=== PATIENT | male | born 1935 ===

== ENCOUNTER 2018-03-25 22:01 | Inpatient (IN) | payer MEDICARE ==
[2018-03-25 23:15] VITALS: BMI 28.1
--- NOTE | 2018-03-26 06:17 | CP.PCM.CON ---
History of Present Illness - History of Present Illness History of Present Illness: Consult: Dr. Lawrence 83M presents transfer to hospital from [facility] from AAA repair w/ Dr. Lawrence. Of not patient originally present to to hospital for dizziness and abdominal pain. Abdominal pain has been going on for 2 months. He states the pain is in the lower abdomen bilateral which has currently resolved. He denies nausea, vomiting , fevers, chills, he has been tolerating diet and having normal bowel movements. He has has a history of AAA which was 3.8-4.1 in 2011. AAA now measuring 4.7*4.8cm. PMH: DM, HTN, COPD, PVD, AAA PSH: poss IHR, right LE vascular bypass, IVC filter Social: cigar smoker, denies alcohol use, denies illicit drugs Allergies: NKDA Review of Systems - Review of Systems All systems: reviewed and no additional remarkable complaints except Review of Systems: unless stated in HPI Past Patient History - Past Social History Smoking Status: Heavy Smoker > 10 Cigarettes Daily - CARDIAC Hx Cardiac Disorders: Yes Hx Hypertension: Yes - PULMONARY Hx Respiratory Disorders: Yes - NEUROLOGICAL Hx Neurological Disorder: No - HEENT Hx HEENT Problems: No - RENAL Hx Chronic Kidney Disease: No - ENDOCRINE/METABOLIC Hx Endocrine Disorders: Yes Hx Diabetes Mellitus Type 2: Yes - HEMATOLOGICAL/ONCOLOGICAL Hx Blood Disorders: No - INTEGUMENTARY Hx Dermatological Problems: No - MUSCULOSKELETAL/RHEUMATOLOGICAL Hx Musculoskeletal Disorders: Yes Hx Arthritis: Yes Hx Back Pain: Yes Hx Falls: No - GASTROINTESTINAL Hx Gastrointestinal Disorders: No - GENITOURINARY/GYNECOLOGICAL Hx Genitourinary Disorders: No - PSYCHIATRIC Hx Psychophysiologic Disorder: Yes Hx Anxiety: Yes Hx Substance Use: No - SURGICAL HISTORY Hx Surgeries: Yes Other/Comment: RLE vascular surgery Fame-Pop bypass. IVC filter. Skin Nose Ca - ANESTHESIA Hx Anesthesia: Yes Hx Anesthesia Reactions: No Meds Allergies/Adverse Reactions: Allergies Allergy/AdvReac Type Severity Reaction Status Date / Time No Known Allergies Allergy Verified 03/19/18 10:19 Physical Exam - Constitutional Appears: Non-toxic, No Acute Distress - Head Exam Head Exam: ATRAUMATIC, NORMOCEPHALIC - Eye Exam Eye Exam: EOMI, Normal appearance - ENT Exam ENT Exam: Mucous Membranes Moist - Respiratory Exam Respiratory Exam: NORMAL BREATHING PATTERN. absent: Respiratory Distress - Cardiovascular Exam Cardiovascular Exam: REGULAR RHYTHM. absent: Tachycardia - GI/Abdominal Exam GI & Abdominal Exam: Soft. absent: Distended, Tenderness - Extremities Exam Extremities exam: Negative for: calf tenderness - Neurological Exam Neurological exam: Alert - Psychiatric Exam Psychiatric exam: Normal Affect, Normal Mood - Skin Skin Exam: Dry, Normal Color, Warm Results - Vital Signs Recent Vital Signs: Last Vital Signs Temp 97.5 F L 03/25/18 23:50 Pulse 69 03/25/18 23:50 Resp 20 03/25/18 23:50 BP 90/52 L 03/25/18 23:50 Pulse Ox 98 03/25/18 23:50 Assessment & Plan - Assessment and Plan (Free Text) Assessment: 83 y/o male w/ AAA and abdominal pain, transferred to [facility] for possible EVAR Plan: -f/u with Dr. aLwrence regarding date and time -medical management per primary team -blood pressure control -further recs per Dr. Lawrence [facility] PGY3
[2018-03-26] MEDS: Sodium Chloride 0.9% 1,000 ML IV SCH ×2 (06:54→19:11)
[2018-03-26] MEDS ORDERED: Dextrose 50% SYRINGE Inj (50 ml) IVP PRN (07:55)
[2018-03-26] MEDS ORDERED: Glucagon Recombinant 1 mg Inj IM PRN (07:55)
[2018-03-26 07:56] LABS: BASO # 0.1 K/uL (0.0-0.2); BASO % 0.9 % (0.0-2.0); EOS # 0.3 K/uL (0.0-0.7); EOS % 5.2 % (0.0-4.0); HEMOGLOBIN 14.5 g/dL (12.0-18.0); LYMPH # 2.1 K/uL (1.0-4.3); LYMPH % 35.7 % (20.0-40.0); MEAN CELL VOLUME 96.1 fL (80.0-94.0); MEAN CORPUSCULAR HEMOGLOBIN 33.3 pg (27.0-31.0); MEAN CORPUSCULAR HGB CONC 34.7 g/dL (33.0-37.0); MEAN PLATELET VOLUME 8.3 fL (7.2-11.7); MONO # 0.5 K/uL (0.0-0.8); MONO % 8.8 % (0.0-10.0); NEUT # 2.9 K/uL (1.8-7.0); NEUT % 49.4 % (50.0-75.0); RBC 4.34 Mil/uL (4.40-5.90); RED CELL DISTRIBUTION WIDTH 13.4 % (11.5-14.5); WHITE BLOOD COUNT 5.8 K/uL (4.8-10.8)
--- NOTE | 2018-03-26 07:59 | CP.PCM.HP ---
<Crissy Alvarado - Last Filed: 03/26/18 16:15> History of Present Illness - History of Present Illness History of Present Illness: 83 year old [place] male with past medical history of HTN, DM, COPD, PVA, DVT, and AAA was transferred from [facility] for AAA repair. Patient's abdominal pain started about 2 months ago. The pain has been getting worse progressively which prompt him to go to the ED at [facility]. Patient describes the pain as sharp in quality and non-radiating. This pain only happens at night when he is lying down. He does not take any pain medication for this pain. Patient was found to have AAA of 3.8-4.1cm in 2012. Patient denies having fever, chills, dizziness, headache, shortness of breath, back pain, extremity swelling, nausea, vomiting, diarrhea, or urinary symptoms. : Lizzie [phone] PMD: Dr. Powell PMH: DM, HTN, COPD, PVD, AAA PSH: right LE vascular bypass, IVC filter Allergies: NKDA Social: cigar smoker, denies alcohol use, denies illicit drugs Home meds: HCTZ, Pentoxifylline, meclizine, glimepiride, cilostazol [facility] [phone] Present on Admission - Present on Admission Any Indicators Present on Admission: Yes History of DVT/PE: Yes Review of Systems - Review of Systems All systems: reviewed and no additional remarkable complaints except Past Patient History - Past Social History Smoking Status: Current Some Days Smoker - CARDIAC Hx Cardiac Disorders: Yes Hx Hypertension: Yes - PULMONARY Hx Respiratory Disorders: Yes - NEUROLOGICAL Hx Neurological Disorder: No - HEENT Hx HEENT Problems: No - RENAL Hx Chronic Kidney Disease: No - ENDOCRINE/METABOLIC Hx Endocrine Disorders: Yes Hx Diabetes Mellitus Type 2: Yes - HEMATOLOGICAL/ONCOLOGICAL Hx Blood Disorders: No - INTEGUMENTARY Hx Dermatological Problems: No - MUSCULOSKELETAL/RHEUMATOLOGICAL Hx Musculoskeletal Disorders: Yes Hx Arthritis: Yes Hx Back Pain: Yes Hx Falls: No - GASTROINTESTINAL Hx Gastrointestinal Disorders: No - GENITOURINARY/GYNECOLOGICAL Hx Genitourinary Disorders: No - PSYCHIATRIC Hx Psychophysiologic Disorder: Yes Hx Anxiety: Yes Hx Substance Use: No - SURGICAL HISTORY Hx Surgeries: Yes Other/Comment: RLE vascular surgery Fame-Pop bypass. IVC filter. Skin Nose Ca - ANESTHESIA Hx Anesthesia: Yes Hx Anesthesia Reactions: No Meds Allergies/Adverse Reactions: Allergies Allergy/AdvReac Type Severity Reaction Status Date / Time No Known Allergies Allergy Verified 03/19/18 10:19 Physical Exam - Additional Findings Additional findings: - Constitutional Appears: No Acute Distress - Head Exam Head Exam: NORMAL INSPECTION - Eye Exam Eye Exam: PERRL - ENT Exam ENT Exam: Normal Exam - Neck Exam Neck exam: Positive for: Normal Inspection - Respiratory Exam Respiratory Exam: Clear to Auscultation bilaterally, no wheezes, no crackers - Cardiovascular Exam Cardiovascular Exam: REGULAR RHYTHM - GI/Abdominal Exam GI & Abdominal Exam: Normal Bowel Sounds, No tenderness, No bruits - Extremities Exam Extremities exam: Positive for: normal inspection - Back Exam Back exam: NORMAL INSPECTION - Neurological Exam Neurological exam: Alert, Oriented x3 Additional comments: No focal motor/sensory deficit. - Psychiatric Exam Psychiatric exam: Anxious - Skin Skin Exam: Warm Results - Vital Signs Recent Vital Signs: Last Vital Signs Temp 97.6 F 03/26/18 07:25 Pulse 85 03/26/18 07:25 Resp 18 03/26/18 07:25 BP 110/66 03/26/18 07:25 Pulse Ox 97 03/26/18 07:25 - Labs Result Diagrams: 03/26/18 07:53 03/26/18 07:53 Labs: Laboratory Results - last 24 hr 03/26/18 06:31 POC Glucose (mg/dL) 157 H Assessment & Plan - Assessment and Plan (Free Text) Assessment: Abdominal aortic aneurym -Abdominal U/S shows infrarenal abdominal aortic aneurysm up to 4.4cm. Intramural thrombus noted along right aspect of aorta -CT abd shows AAA measures now 4.7 x 4.8cm compare to prior 3.8x 4.1cm. Considerable thrombus identified -Patient transferred from [facility] plan for with surgical team -Surgery consulted, Dr. Lawrence -Cardiology cleared for surgery -On schedule for Thursday OR HTN -Optimize for surgery -Continue HCTZ 25mg po Hx of DVT -Follow up venous doppler PVD -Pentoxil 400mg po DM -A1C 6.1 on 03/20/18 -FS Q6h -ISS -Hypoglycemic protocol -Hold DM meds Prophylactic measures -Protonix -Lovenox -SCD C/I due to PVD <Luna Glez V - Last Filed: 03/28/18 23:34> Results - Vital Signs Recent Vital Signs: Last Vital Signs Temp 98 F 03/27/18 15:53 Pulse 66 03/27/18 15:53 Resp 20 03/27/18 15:53 BP 150/67 03/27/18 15:53 Pulse Ox 96 03/27/18 15:53 - Labs Result Diagrams: 03/28/18 07:27 03/28/18 07:27 Labs: Laboratory Results - last 24 hr 03/26/18 03/26/18 03/27/18 17:06 21:22 06:20 WBC RBC Hgb Hct MCV MCH MCHC RDW Plt Count MPV Neut % (Auto) Lymph % (Auto) [place] % (Auto) Eos % (Auto) Baso % (Auto) Neut # (Auto) Lymph # (Auto) [place] # (Auto) Eos # (Auto) Baso # (Auto) Sodium Potassium Chloride Carbon Dioxide Anion Gap BUN Creatinine Est GFR ( Amer) Est GFR (Non-Af Amer) POC Glucose (mg/dL) 269 H 218 H 136 H Random Glucose Calcium Total Bilirubin AST ALT Alkaline Phosphatase Total Protein Albumin Globulin Albumin/Globulin Ratio 03/27/18 03/27/18 03/27/18 07:43 07:43 11:48 WBC 6.1 RBC 4.09 L Hgb 13.8 Hct 39.2 MCV 95.8 H MCH 33.8 H MCHC 35.3 RDW 13.5 Plt Count 152 MPV 8.4 Neut % (Auto) 50.9 Lymph % (Auto) 33.3 [place] % (Auto) 9.2 Eos % (Auto) 6.1 H Baso % (Auto) 0.5 Neut # (Auto) 3.1 Lymph # (Auto) 2.0 [place] # (Auto) 0.6 Eos # (Auto) 0.4 Baso # (Auto) 0.0 Sodium 142 Potassium 4.6 Chloride 104 Carbon Dioxide 29 Anion Gap 14 BUN 35 H Creatinine 1.3 Est GFR ( Amer) > 60 Est GFR (Non-Af Amer) 53 POC Glucose (mg/dL) 137 H Random Glucose 136 H Calcium 8.8 Total Bilirubin 0.4 AST 17 ALT 13 L Alkaline Phosphatase 74 Total Protein 6.2 L Albumin 3.4 L Globulin 2.8 Albumin/Globulin Ratio 1.2 Attending/Attestation - Attestation I have personally seen and examined this patient.: Yes I have fully participated in the care of the patient.: Yes I have reviewed all pertinent clinical information: Yes Notes (Text): This is late computer entry for 03/26/18. Hospitalist Service Covering 's service until 03/29 Patient with known history of hypertension, History of DVT, Peripheral vascular disease, diabetes, AAA was transferred from [place] for EVAR with Vascular surgery at [facility]. Patient reported 2 week history of abdominal pain wherein known aneurysm grew in size. Resident has spoken with surgery team and surgeon's office, patient is scheduled for surgery for March 29. In the [place] EMR, patient was seen by cardiology and cleared for procedure. Patient seen at bedside with the resident. Discussed admitting orders with the resident. Vascular and cardiology consulted on the patient. Please refer to [place] hospitalization in EMR for initial workup for further details. Assessment/Plan 1) Abdominal aortic aneurysm * Vascular surgery (Dr. Lawrence) on case-->help appreciated * Cardiology (Dr. Zeng) on case-->help appreciated * Underwent cardiac workup and clearance while at [place] * s/p stress test showing no evidence of ischemia * As per ACC/AHA guidelines he can proceed with planned surgery of AAA with low risk for perioperative cardiac event * keep pt on bb * Abdominal U/S shows infrarenal abdominal aortic aneurysm up to 4.4cm. Intramural thrombus noted along right aspect of aorta * CT abd shows AAA measures now 4.7 x 4.8cm compare to prior 3.8x 4.1cm. Considerable thrombus identified * Patient transferred from [facility] plan for EVAAR, planned for March 29 * Will keep antihypertensives on board 2) Hypertension * Continue HCTZ 25mg po daily * Recommended for beta juan jose by cardiology * Will monitor blood pressure 3) Hx of DVT * Follow up venous doppler lower extremities--unclear how recent clot was * Contraindications to SCDS 4) History of PVD * Pentoxil 400mg PO daily 5) History of Diabetes * A1C 6.1 on 03/20/18 * Accuchecks Q6 * ISS * Hypoglycemic protoco * Hold DM meds on admission until surgery date was clarified; patient takes Januvia and Amaryl 6) Prophylactic measures * Protonix 40mg PO daily * Lovenox 40mg subqdaily * SCD C/I due to PVD 03/28/18 23:30
[2018-03-26 08:04] LABS: PROTHROMBIN TIME 11.4 SECONDS (9.7-12.2)
[2018-03-26 08:11] LABS: ALB/GLOB RATIO 1.3 (1.0-2.1)
[2018-03-26] MEDS: (Novolin R) Insulin Human Regular 100 units/ml vial SC SCH ×4 (12:30→22:00)
[2018-03-27] MEDS: (Novolin R) Insulin Human Regular 100 units/ml vial SC SCH ×3 (07:29→21:50)
[2018-03-27 08:00] LABS: BASO % 0.5 % (0.0-2.0); EOS # 0.4 K/uL (0.0-0.7); EOS % 6.1 % (0.0-4.0); HEMOGLOBIN 13.8 g/dL (12.0-18.0); LYMPH % 33.3 % (20.0-40.0); MEAN CELL VOLUME 95.8 fL (80.0-94.0); MEAN CORPUSCULAR HEMOGLOBIN 33.8 pg (27.0-31.0); MEAN CORPUSCULAR HGB CONC 35.3 g/dL (33.0-37.0); MEAN PLATELET VOLUME 8.4 fL (7.2-11.7); MONO # 0.6 K/uL (0.0-0.8); MONO % 9.2 % (0.0-10.0); NEUT # 3.1 K/uL (1.8-7.0); NEUT % 50.9 % (50.0-75.0); RBC 4.09 Mil/uL (4.40-5.90); RED CELL DISTRIBUTION WIDTH 13.5 % (11.5-14.5); WHITE BLOOD COUNT 6.1 K/uL (4.8-10.8)
[2018-03-27 08:24] LABS: ALB/GLOB RATIO 1.2 (1.0-2.1); ALBUMIN 3.4 g/dL (3.5-5.0); ALT/SGPT 13 U/L (21-72); AST/SGOT 17 U/L (17-59); BLOOD UREA NITROGEN 35 mg/dL (9-20); CALCIUM 8.8 mg/dl (8.6-10.4); GFR AFRICAN-AMERICAN > 60; GFR NON-AFRICAN AMERICAN 53
--- NOTE | 2018-03-27 08:48 | CP.PCM.PN ---
Subjective - Date & Time of Evaluation Date of Evaluation: 03/27/18 Time of Evaluation: 08:43 - Subjective Subjective: Vascular Surgery Progress Note For Dr. Lawrence This 83 M was seen this AM at bedside. He said " he feels the same" and yelled. He was uncooperative this AM. Expressed concerns that he is no receiving his diabetes medications. I explained that he is on different diabetes medications in the hospital than he would be at home and the the medical team is managing it. Objective - Vital Signs/Intake and Output Vital Signs (last 24 hours): Temp Pulse Resp BP Pulse Ox 97.5 F L 65 20 157/81 H 97 03/27/18 07:05 03/27/18 07:05 03/27/18 07:05 03/27/18 07:05 03/27/18 07:05 Intake and Output: 03/27/18 03/27/18 06:59 18:59 Intake Total 0 Balance 0 - Medications Medications: Current Medications Dextrose (Dextrose 50% Inj) 0 ml IVP .STAT PRN; Protocol PRN Reason: Hypoglycemia Protocol Dextrose (Glutose 15) 0 gm PO .ONCE PRN; Protocol PRN Reason: Hypoglycemia Protocol Enoxaparin Sodium (Lovenox) 40 mg SC DAILY [facility] Glucagon (Glucagen Diagnostic Kit) 0 mg IM .STAT PRN; Protocol PRN Reason: Hypoglycemia Protocol Hydrochlorothiazide (Hydrodiuril) 25 mg PO DAILY [facility] Last Admin: 03/26/18 10:00 Dose: 25 mg Sodium Chloride (Sodium Chloride 0.9%) 1,000 mls @ 75 mls/hr IV .[id number] [facility] Last Admin: 03/26/18 19:11 Dose: Not Given Dextrose (Dextrose 5% In Water 1000 Ml) 1,000 mls @ 0 mls/hr IV .Q0M PRN; Protocol; Per Protocol PRN Reason: Hypoglycemia Protocol Insulin Human Regular (Novolin R) 0 unit SC ACHS [facility] PRN Reason: Protocol Last Admin: 03/27/18 07:29 Dose: Not Given Meclizine HCl (Antivert) 25 mg PO DAILY [facility] Last Admin: 03/26/18 10:00 Dose: 25 mg Pantoprazole Sodium (Protonix Inj) 40 mg IVP DAILY [facility] Last Admin: 03/26/18 12:31 Dose: 40 mg Pentoxifylline (Pentoxil) 400 mg PO DAILY [facility] Last Admin: 03/26/18 10:00 Dose: 400 mg Sitagliptin Phosphate (Januvia) 50 mg PO DAILY [facility] - Labs Labs: 03/27/18 07:43 03/27/18 07:43 PT 11.4 SECONDS (9.7-12.2) 03/26/18 07:53 INR 1.0 03/26/18 07:53 - Constitutional Appears: Non-toxic, No Acute Distress - Head Exam Head Exam: ATRAUMATIC, NORMOCEPHALIC - Eye Exam Eye Exam: EOMI - ENT Exam ENT Exam: Mucous Membranes Moist - Respiratory Exam Respiratory Exam: NORMAL BREATHING PATTERN - Cardiovascular Exam Cardiovascular Exam: REGULAR RHYTHM - GI/Abdominal Exam GI & Abdominal Exam: Soft. absent: Tenderness - Neurological Exam Neurological Exam: Alert, Awake - Psychiatric Exam Psychiatric exam: Agitated Assessment and Plan - Assessment and Plan (Free Text) Assessment: 83 y/o male w/ AAA and abdominal pain, transferred to [facility] for possible EVAR Plan: -Plan for OR Thursday - NPO thursday night -medical management per primary team -blood pressure control -D/W Dr. Howard Warren PGY2
[2018-03-27] MEDS: Sodium Chloride 0.9% 1,000 ML IV SCH ×2 (10:15→21:59)
[2018-03-27] MEDS: Enoxaparin 40 mg Syringe SC SCH (10:17)
--- NOTE | 2018-03-27 13:06 | CP.PCM.CON ---
History of Present Illness - History of Present Illness History of Present Illness: Consultation for preop evaluation for AAA repair via EVAR planned for thursday HPI: 83 year old patient of who was seen and evaluated by me in [place] and underwent nuclear stress test last week for preoperative evaluatoin for EVAR. plan for sx on thursday Review of Systems - Review of Systems Systems not reviewed;Unavailable: Acuity of Condition - Constitutional Constitutional: As Per HPI - EENT Eyes: As Per HPI Ears: As Per HPI Nose/Mouth/Throat: As Per HPI - Cardiovascular Cardiovascular: As Per HPI - Respiratory Respiratory: As Per HPI - Gastrointestinal Gastrointestinal: As Per HPI - Genitourinary Genitourinary: As Per HPI - Reproductive: Male Reproductive:Male: As Per HPI - Musculoskeletal Musculoskeletal: As Per HPI - Integumentary Integumentary: As Per HPI - Neurological Neurological: As Per HPI - Psychiatric Psychiatric: As Per HPI - Endocrine Endocrine: As Per HPI - Hematologic/Lymphatic Hematologic: As Per HPI Past Patient History - Past Social History Smoking Status: Current Some Days Smoker - CARDIAC Hx Cardiac Disorders: Yes Hx Hypertension: Yes - PULMONARY Hx Respiratory Disorders: Yes - NEUROLOGICAL Hx Neurological Disorder: No - HEENT Hx HEENT Problems: No - RENAL Hx Chronic Kidney Disease: No - ENDOCRINE/METABOLIC Hx Endocrine Disorders: Yes Hx Diabetes Mellitus Type 2: Yes - HEMATOLOGICAL/ONCOLOGICAL Hx Blood Disorders: No - INTEGUMENTARY Hx Dermatological Problems: No - MUSCULOSKELETAL/RHEUMATOLOGICAL Hx Musculoskeletal Disorders: Yes Hx Arthritis: Yes Hx Back Pain: Yes Hx Falls: No - GASTROINTESTINAL Hx Gastrointestinal Disorders: No - GENITOURINARY/GYNECOLOGICAL Hx Genitourinary Disorders: No - PSYCHIATRIC Hx Psychophysiologic Disorder: Yes Hx Anxiety: Yes Hx Substance Use: No - SURGICAL HISTORY Hx Surgeries: Yes Other/Comment: RLE vascular surgery Fame-Pop bypass. IVC filter. Skin Nose Ca - ANESTHESIA Hx Anesthesia: Yes Hx Anesthesia Reactions: No Meds Allergies/Adverse Reactions: Allergies Allergy/AdvReac Type Severity Reaction Status Date / Time No Known Allergies Allergy Verified 03/19/18 10:19 - Medications Medications: Current Medications Dextrose (Dextrose 50% Inj) 0 ml IVP .STAT PRN; Protocol PRN Reason: Hypoglycemia Protocol Dextrose (Glutose 15) 0 gm PO .ONCE PRN; Protocol PRN Reason: Hypoglycemia Protocol Enoxaparin Sodium (Lovenox) 40 mg SC DAILY [facility] Last Admin: 03/27/18 10:17 Dose: Not Given Glucagon (Glucagen Diagnostic Kit) 0 mg IM .STAT PRN; Protocol PRN Reason: Hypoglycemia Protocol Hydrochlorothiazide (Hydrodiuril) 25 mg PO DAILY [facility] Last Admin: 03/27/18 11:49 Dose: 25 mg Sodium Chloride (Sodium Chloride 0.9%) 1,000 mls @ 75 mls/hr IV .[id number] [facility] Last Admin: 03/27/18 10:15 Dose: Not Given Dextrose (Dextrose 5% In Water 1000 Ml) 1,000 mls @ 0 mls/hr IV .Q0M PRN; Protocol; Per Protocol PRN Reason: Hypoglycemia Protocol Insulin Human Regular (Novolin R) 0 unit SC ACHS [facility] PRN Reason: Protocol Last Admin: 03/27/18 07:29 Dose: Not Given Meclizine HCl (Antivert) 25 mg PO DAILY [facility] Last Admin: 03/27/18 10:17 Dose: Not Given Pantoprazole Sodium (Protonix Inj) 40 mg IVP DAILY [facility] Last Admin: 03/27/18 10:17 Dose: Not Given Pentoxifylline (Pentoxil) 400 mg PO DAILY [facility] Last Admin: 03/27/18 10:17 Dose: Not Given Sitagliptin Phosphate (Januvia) 50 mg PO DAILY [facility] Physical Exam - Constitutional Appears: Well - Head Exam Head Exam: ATRAUMATIC, NORMAL INSPECTION, NORMOCEPHALIC - Eye Exam Eye Exam: EOMI, Normal appearance, PERRL Pupil Exam: NORMAL ACCOMODATION, PERRL - ENT Exam ENT Exam: Mucous Membranes Moist, Normal Exam - Neck Exam Neck exam: Positive for: Normal Inspection - Respiratory Exam Respiratory Exam: Clear to Auscultation Bilateral, NORMAL BREATHING PATTERN - Cardiovascular Exam Cardiovascular Exam: REGULAR RHYTHM, RRR, +S1, +S2, Systolic Murmur - GI/Abdominal Exam GI & Abdominal Exam: Normal Bowel Sounds, Soft. absent: Tenderness - Extremities Exam Extremities exam: Positive for: normal inspection - Back Exam Back exam: NORMAL INSPECTION - Neurological Exam Neurological exam: Alert, CN II-XII Intact, Normal Gait, Oriented x3, Reflexes Normal - Psychiatric Exam Psychiatric exam: Normal Affect, Normal Mood - Skin Skin Exam: Dry, Intact, Normal Color, Warm Results - Vital Signs Recent Vital Signs: Last Vital Signs Temp 97.5 F L 03/27/18 07:05 Pulse 65 03/27/18 07:05 Resp 20 03/27/18 07:05 BP 157/81 H 03/27/18 07:05 Pulse Ox 97 03/27/18 07:05 - Labs Result Diagrams: 03/29/18 07:22 03/29/18 07:22 Labs: Laboratory Results - last 24 hr 03/26/18 03/26/18 03/27/18 17:06 21:22 06:20 WBC RBC Hgb Hct MCV MCH MCHC RDW Plt Count MPV Neut % (Auto) Lymph % (Auto) [place] % (Auto) Eos % (Auto) Baso % (Auto) Neut # (Auto) Lymph # (Auto) [place] # (Auto) Eos # (Auto) Baso # (Auto) Sodium Potassium Chloride Carbon Dioxide Anion Gap BUN Creatinine Est GFR ( Amer) Est GFR (Non-Af Amer) POC Glucose (mg/dL) 269 H 218 H 136 H Random Glucose Calcium Total Bilirubin AST ALT Alkaline Phosphatase Total Protein Albumin Globulin Albumin/Globulin Ratio 03/27/18 03/27/18 03/27/18 07:43 07:43 11:48 WBC 6.1 RBC 4.09 L Hgb 13.8 Hct 39.2 MCV 95.8 H MCH 33.8 H MCHC 35.3 RDW 13.5 Plt Count 152 MPV 8.4 Neut % (Auto) 50.9 Lymph % (Auto) 33.3 [place] % (Auto) 9.2 Eos % (Auto) 6.1 H Baso % (Auto) 0.5 Neut # (Auto) 3.1 Lymph # (Auto) 2.0 [place] # (Auto) 0.6 Eos # (Auto) 0.4 Baso # (Auto) 0.0 Sodium 142 Potassium 4.6 Chloride 104 Carbon Dioxide 29 Anion Gap 14 BUN 35 H Creatinine 1.3 Est GFR ( Amer) > 60 Est GFR (Non-Af Amer) 53 POC Glucose (mg/dL) 137 H Random Glucose 136 H Calcium 8.8 Total Bilirubin 0.4 AST 17 ALT 13 L Alkaline Phosphatase 74 Total Protein 6.2 L Albumin 3.4 L Globulin 2.8 Albumin/Globulin Ratio 1.2 Assessment & Plan (1) Preop cardiovascular exam Assessment and Plan: As per ACC/Aha guidelines he can proceed with planned EVAR with low risk for perioperative cardiac event keep pt on bb Status: Acute (2) AAA (abdominal aortic aneurysm) Status: Chronic Priority: High (3) HTN (hypertension) Assessment and Plan: hctz, metoprolol Status: Chronic Priority: Medium (4) PVD (peripheral vascular disease) Status: Chronic Priority: High
--- NOTE | 2018-03-27 13:23 | CP.PCM.PN ---
<Jaleesa Manrique - Last Filed: 03/27/18 13:19> Subjective - Date & Time of Evaluation Date of Evaluation: 03/27/18 Time of Evaluation: 09:00 - Subjective Subjective: Medicine Note for Hospitalist- Dr. Glez Patient was and seen and examined at bedside. No acute complaints. Denied fever , chills, headache, chest pain, abdominal pain, n/v/d/c/, or urinary symptoms. Objective - Vital Signs/Intake and Output Vital Signs (last 24 hours): Temp Pulse Resp BP Pulse Ox 97.5 F L 65 20 157/81 H 97 03/27/18 07:05 03/27/18 07:05 03/27/18 07:05 03/27/18 07:05 03/27/18 07:05 Intake and Output: 03/27/18 03/27/18 06:59 18:59 Intake Total 0 Balance 0 - Medications Medications: Current Medications Dextrose (Dextrose 50% Inj) 0 ml IVP .STAT PRN; Protocol PRN Reason: Hypoglycemia Protocol Dextrose (Glutose 15) 0 gm PO .ONCE PRN; Protocol PRN Reason: Hypoglycemia Protocol Enoxaparin Sodium (Lovenox) 40 mg SC DAILY [facility] Last Admin: 03/27/18 10:17 Dose: Not Given Glucagon (Glucagen Diagnostic Kit) 0 mg IM .STAT PRN; Protocol PRN Reason: Hypoglycemia Protocol Hydrochlorothiazide (Hydrodiuril) 25 mg PO DAILY [facility] Last Admin: 03/27/18 11:49 Dose: 25 mg Sodium Chloride (Sodium Chloride 0.9%) 1,000 mls @ 75 mls/hr IV .[id number] [facility] Last Admin: 03/27/18 10:15 Dose: Not Given Dextrose (Dextrose 5% In Water 1000 Ml) 1,000 mls @ 0 mls/hr IV .Q0M PRN; Protocol; Per Protocol PRN Reason: Hypoglycemia Protocol Insulin Human Regular (Novolin R) 0 unit SC [facility] PRN Reason: Protocol Last Admin: 03/27/18 07:29 Dose: Not Given Meclizine HCl (Antivert) 25 mg PO DAILY [facility] Last Admin: 03/27/18 10:17 Dose: Not Given Pantoprazole Sodium (Protonix Inj) 40 mg IVP DAILY [facility] Last Admin: 03/27/18 10:17 Dose: Not Given Pentoxifylline (Pentoxil) 400 mg PO DAILY [facility] Last Admin: 03/27/18 10:17 Dose: Not Given Sitagliptin Phosphate (Januvia) 50 mg PO DAILY [facility] - Labs Labs: 03/27/18 07:43 03/27/18 07:43 PT 11.4 SECONDS (9.7-12.2) 03/26/18 07:53 INR 1.0 03/26/18 07:53 - Additional Findings Additional findings: - Constitutional Appears: No Acute Distress - Head Exam Head Exam: NORMAL INSPECTION - Eye Exam Eye Exam: PERRL - ENT Exam ENT Exam: Normal Exam - Neck Exam Neck exam: Positive for: Normal Inspection - Respiratory Exam Respiratory Exam: Clear to Auscultation bilaterally, no wheezes, no crackers - Cardiovascular Exam Cardiovascular Exam: REGULAR RHYTHM - GI/Abdominal Exam GI & Abdominal Exam: Normal Bowel Sounds, No tenderness, No bruits - Extremities Exam Extremities exam: Positive for: normal inspection - Back Exam Back exam: NORMAL INSPECTION - Neurological Exam Neurological exam: Alert, Oriented x3 Additional comments: No focal motor/sensory deficit. - Psychiatric Exam Psychiatric exam: Anxious - Skin Skin Exam: Warm Assessment and Plan - Assessment and Plan (Free Text) Plan: Abdominal aortic aneurym -Surgery consulted, Dr. Lawrence -Cardiology Dr. Zeng, cleared for surgery - noted in previous notes during [place] admission -Abdominal U/S shows infrarenal abdominal aortic aneurysm up to 4.4cm. Intramural thrombus noted along right aspect of aorta -CT abd shows AAA measures now 4.7 x 4.8cm compare to prior 3.8x 4.1cm. Considerable thrombus identified -Patient transferred from [facility] plan for with surgical team -On schedule for Thursday OR with Dr. Lawrence HTN -Optimize for surgery -Continue HCTZ 25mg po Hx of DVT -Follow up venous doppler PVD -Pentoxil 400mg po DM -A1C 6.1 on 03/20/18 -FS Q6h -ISS -Hypoglycemic protocol -Hold DM meds Prophylactic measures -Protonix -Lovenox -SCD C/I due to PVD Disposition: Plan for possible EVAR, Thursday with Dr. Lawrence DW Jaleesa Segundo DO, PGY-1 <Luna Glez V - Last Filed: 03/28/18 23:38> Objective - Vital Signs/Intake and Output Vital Signs (last 24 hours): Temp Pulse Resp BP Pulse Ox 98.3 F 66 18 107/62 98 03/28/18 15:32 03/28/18 15:32 03/28/18 15:32 03/28/18 15:32 03/28/18 15:32 - Medications Medications: Current Medications Dextrose (Dextrose 50% Inj) 0 ml IVP .STAT PRN; Protocol PRN Reason: Hypoglycemia Protocol Dextrose (Glutose 15) 0 gm PO .ONCE PRN; Protocol PRN Reason: Hypoglycemia Protocol Glucagon (Glucagen Diagnostic Kit) 0 mg IM .STAT PRN; Protocol PRN Reason: Hypoglycemia Protocol Hydrochlorothiazide (Hydrodiuril) 25 mg PO DAILY [facility] Last Admin: 03/28/18 10:18 Dose: Not Given Sodium Chloride (Sodium Chloride 0.9%) 1,000 mls @ 75 mls/hr IV .[id number] [facility] Last Admin: 03/27/18 21:59 Dose: Not Given Dextrose (Dextrose 5% In Water 1000 Ml) 1,000 mls @ 0 mls/hr IV .Q0M PRN; Protocol; Per Protocol PRN Reason: Hypoglycemia Protocol Insulin Human Regular (Novolin R) 0 unit SC A[facility]S [facility] PRN Reason: Protocol Last Admin: 03/28/18 21:38 Dose: Not Given Meclizine HCl (Antivert) 25 mg PO DAILY [facility] Last Admin: 03/28/18 10:18 Dose: Not Given Metoprolol Succinate (Toprol Xl) 12.5 mg PO DAILY [facility] Pantoprazole Sodium (Protonix Inj) 40 mg IVP DAILY [facility] Pentoxifylline (Pentoxil) 400 mg PO DAILY [facility] Last Admin: 03/28/18 10:18 Dose: Not Given Sitagliptin Phosphate (Januvia) 50 mg PO DAILY [facility] Last Admin: 03/28/18 12:32 Dose: 50 mg - Labs Labs: 03/28/18 07:27 03/28/18 07:27 PT 11.4 SECONDS (9.7-12.2) 03/26/18 07:53 INR 1.0 03/26/18 07:53 Attending/Attestation - Attestation I have personally seen and examined this patient.: Yes I have fully participated in the care of the patient.: Yes I have reviewed all pertinent clinical information, including history, physical exam and plan: Yes Notes (Text): This is late computer entry for 03/27/18. Patient seen, examined and case discussed with day-time resident. Patient seen at bedside. Patient denies acute complaints. Patient has refused venous dopplers. Patient had refused anti-hypertensive medications and diabetic medications with nursing in the morning; resident has spoken with him that it is important to control his blood pressure given his AAA and we cannot start one of his diabetes (amaryl) because we do not want him to become hypoglycemic prior to surgery. Surgery is planned for March 29 for EVAR. Assessment/Plan 1) Abdominal aortic aneurysm * Vascular surgery (Dr. Lawrence) on case-->help appreciated * Cardiology (Dr. Zeng) on case-->help appreciated * Underwent cardiac workup and clearance while at [place]-->seen EMR for further details * s/p stress test showing no evidence of ischemia * As per ACC/AHA guidelines he can proceed with planned surgery of AAA with low risk for perioperative cardiac event * keep pt on bb * Abdominal U/S shows infrarenal abdominal aortic aneurysm up to 4.4cm. Intramural thrombus noted along right aspect of aorta * CT abd shows AAA measures now 4.7 x 4.8cm compare to prior 3.8x 4.1cm. Considerable thrombus identified * Patient transferred from [facility] plan for [facility], planned for March 29 * Will keep antihypertensives on board 2) Hypertension * Continue HCTZ 25mg po daily * Recommended for beta juan jose by cardiology * Will monitor blood pressure 3) Hx of DVT * Follow up venous doppler lower extremities--unclear how recent clot was; patient refused * Contraindications to SCDS 4) History of PVD * Pentoxil 400mg PO daily 5) History of Diabetes * A1C 6.1 on 03/20/18 * Accuchecks Q6 * ISS * Hypoglycemic protoco * Hold DM meds on admission until surgery date was clarified; c/w Januvia and held Amaryl 6) Prophylactic measures * Protonix 40mg PO daily * Lovenox 40mg subqdaily * SCD C/I due to PVD
[2018-03-28 07:36] LABS: BASO % 0.7 % (0.0-2.0); EOS # 0.4 K/uL (0.0-0.7); EOS % 5.9 % (0.0-4.0); HEMOGLOBIN 13.7 g/dL (12.0-18.0); LYMPH # 2.2 K/uL (1.0-4.3); LYMPH % 32.8 % (20.0-40.0); MEAN CELL VOLUME 95.7 fL (80.0-94.0); MEAN CORPUSCULAR HEMOGLOBIN 33.4 pg (27.0-31.0); MEAN CORPUSCULAR HGB CONC 34.9 g/dL (33.0-37.0); MEAN PLATELET VOLUME 7.9 fL (7.2-11.7); MONO # 0.6 K/uL (0.0-0.8); MONO % 9.7 % (0.0-10.0); NEUT # 3.3 K/uL (1.8-7.0); NEUT % 50.9 % (50.0-75.0); RBC 4.1 Mil/uL (4.40-5.90); RED CELL DISTRIBUTION WIDTH 13.3 % (11.5-14.5); WHITE BLOOD COUNT 6.6 K/uL (4.8-10.8)
[2018-03-28] MEDS: (Novolin R) Insulin Human Regular 100 units/ml vial SC SCH ×4 (07:43→21:38)
[2018-03-28 08:15] LABS: ALB/GLOB RATIO 1.1 (1.0-2.1); ALBUMIN 3.1 g/dL (3.5-5.0); ALT/SGPT 31 U/L (21-72); AST/SGOT 22 U/L (17-59); BLOOD UREA NITROGEN 39 mg/dL (9-20); CALCIUM 8.9 mg/dl (8.6-10.4); GFR AFRICAN-AMERICAN > 60; GFR NON-AFRICAN AMERICAN 58
--- NOTE | 2018-03-28 08:37 | CP.PCM.PN ---
Subjective - Date & Time of Evaluation Date of Evaluation: 03/28/18 Time of Evaluation: 08:35 - Subjective Subjective: Vascular Surgery Progress Note For Dr. Howard Osei, PGY-1 Pt S & E at bedside at 0750 No acute events overnight. Pt sitting at bedside eating breakfast. Pt without physical complaints today, however reports that he wants "guarantees" that nothing will go wrong during his procedure tomorrow. Admits to Right leg pain. Denies N & V, F & C. Objective - Vital Signs/Intake and Output Vital Signs (last 24 hours): Temp Pulse Resp BP Pulse Ox 97.5 F L 58 L 20 119/64 97 03/28/18 07:00 03/28/18 07:00 03/28/18 07:00 03/28/18 07:00 03/28/18 07:00 Intake and Output: 03/28/18 03/28/18 06:59 18:59 Intake Total 480 Balance 480 - Medications Medications: Current Medications Dextrose (Dextrose 50% Inj) 0 ml IVP .STAT PRN; Protocol PRN Reason: Hypoglycemia Protocol Dextrose (Glutose 15) 0 gm PO .ONCE PRN; Protocol PRN Reason: Hypoglycemia Protocol Enoxaparin Sodium (Lovenox) 40 mg SC DAILY [facility] Last Admin: 03/27/18 10:17 Dose: Not Given Glucagon (Glucagen Diagnostic Kit) 0 mg IM .STAT PRN; Protocol PRN Reason: Hypoglycemia Protocol Hydrochlorothiazide (Hydrodiuril) 25 mg PO DAILY [facility] Last Admin: 03/27/18 11:49 Dose: 25 mg Sodium Chloride (Sodium Chloride 0.9%) 1,000 mls @ 75 mls/hr IV .[id number] [facility] Last Admin: 03/27/18 21:59 Dose: Not Given Dextrose (Dextrose 5% In Water 1000 Ml) 1,000 mls @ 0 mls/hr IV .Q0M PRN; Protocol; Per Protocol PRN Reason: Hypoglycemia Protocol Insulin Human Regular (Novolin R) 0 unit SC ACHS [facility] PRN Reason: Protocol Last Admin: 03/28/18 07:43 Dose: Not Given Meclizine HCl (Antivert) 25 mg PO DAILY [facility] Last Admin: 03/27/18 10:17 Dose: Not Given Pantoprazole Sodium (Protonix Inj) 40 mg IVP DAILY [facility] Last Admin: 03/27/18 10:17 Dose: Not Given Pentoxifylline (Pentoxil) 400 mg PO DAILY [facility] Last Admin: 03/27/18 10:17 Dose: Not Given Sitagliptin Phosphate (Januvia) 50 mg PO DAILY [facility] - Labs Labs: 03/28/18 07:27 03/28/18 07:27 PT 11.4 SECONDS (9.7-12.2) 03/26/18 07:53 INR 1.0 03/26/18 07:53 - Constitutional Appears: Non-toxic, No Acute Distress - Head Exam Head Exam: ATRAUMATIC, NORMAL INSPECTION, NORMOCEPHALIC - Eye Exam Eye Exam: EOMI, Normal appearance - ENT Exam ENT Exam: Mucous Membranes Moist, Normal Exam - Neck Exam Neck Exam: Full ROM, Normal Inspection - Respiratory Exam Respiratory Exam: Clear to Ausculation Bilateral, NORMAL BREATHING PATTERN - Cardiovascular Exam Cardiovascular Exam: REGULAR RHYTHM, +S1, +S2 - GI/Abdominal Exam GI & Abdominal Exam: Soft, Normal Bowel Sounds. absent: Distended (obese), Firm , Guarding, Rigid, Tenderness, Pulsatile Mass - Extremities Exam Extremities Exam: Normal Inspection, Tenderness (Right lower leg) - Back Exam Back Exam: NORMAL INSPECTION - Neurological Exam Neurological Exam: Alert, Awake, CN II-XII Intact, Oriented x3 - Psychiatric Exam Psychiatric exam: Normal Affect, Normal Mood - Skin Skin Exam: Dry, Intact, Normal Color, Warm Additional comments: Well healed linear scars over medial aspect of right lower extremity Assessment and Plan - Assessment and Plan (Free Text) Assessment: 83 y/o male w/ AAA and abdominal pain, transferred to [facility] [place] for possible [facility] Plan: NPO pMN Consent in chart Plan for OR for EVAR tomorrow BP control Further mgmt as per primary team Will DW attending [place], PGY-1
--- NOTE | 2018-03-28 09:27 | CP.PCM.PN ---
<Jaleesa Manrique - Last Filed: 03/28/18 09:26> Subjective - Date & Time of Evaluation Date of Evaluation: 03/28/18 Time of Evaluation: 09:00 - Subjective Subjective: Medicine Note for Hospitalist- Dr. Glez Patient was and seen and examined at bedside. No acute complaints. Denied fever , chills, headache, chest pain, abdominal pain, n/v/d/c/, or urinary symptoms. Objective - Vital Signs/Intake and Output Vital Signs (last 24 hours): Temp Pulse Resp BP Pulse Ox 97.5 F L 58 L 20 119/64 97 03/28/18 07:00 03/28/18 07:00 03/28/18 07:00 03/28/18 07:00 03/28/18 07:00 Intake and Output: 03/28/18 03/28/18 06:59 18:59 Intake Total 480 Balance 480 - Medications Medications: Current Medications Dextrose (Dextrose 50% Inj) 0 ml IVP .STAT PRN; Protocol PRN Reason: Hypoglycemia Protocol Dextrose (Glutose 15) 0 gm PO .ONCE PRN; Protocol PRN Reason: Hypoglycemia Protocol Enoxaparin Sodium (Lovenox) 40 mg SC DAILY [facility] Last Admin: 03/27/18 10:17 Dose: Not Given Glucagon (Glucagen Diagnostic Kit) 0 mg IM .STAT PRN; Protocol PRN Reason: Hypoglycemia Protocol Hydrochlorothiazide (Hydrodiuril) 25 mg PO DAILY [facility] Last Admin: 03/27/18 11:49 Dose: 25 mg Sodium Chloride (Sodium Chloride 0.9%) 1,000 mls @ 75 mls/hr IV .[id number] [facility] Last Admin: 03/27/18 21:59 Dose: Not Given Dextrose (Dextrose 5% In Water 1000 Ml) 1,000 mls @ 0 mls/hr IV .Q0M PRN; Protocol; Per Protocol PRN Reason: Hypoglycemia Protocol Insulin Human Regular (Novolin R) 0 unit SC [facility] PRN Reason: Protocol Last Admin: 03/28/18 07:43 Dose: Not Given Meclizine HCl (Antivert) 25 mg PO DAILY [facility] Last Admin: 03/27/18 10:17 Dose: Not Given Pantoprazole Sodium (Protonix Inj) 40 mg IVP DAILY [facility] Last Admin: 03/27/18 10:17 Dose: Not Given Pentoxifylline (Pentoxil) 400 mg PO DAILY [facility] Last Admin: 03/27/18 10:17 Dose: Not Given Sitagliptin Phosphate (Januvia) 50 mg PO DAILY [facility] - Labs Labs: 03/28/18 07:27 03/28/18 07:27 PT 11.4 SECONDS (9.7-12.2) 03/26/18 07:53 INR 1.0 03/26/18 07:53 - Additional Findings Additional findings: - Constitutional Appears: No Acute Distress - Head Exam Head Exam: NORMAL INSPECTION - Eye Exam Eye Exam: PERRL - ENT Exam ENT Exam: Normal Exam - Neck Exam Neck exam: Positive for: Normal Inspection - Respiratory Exam Respiratory Exam: Clear to Auscultation bilaterally, no wheezes, no crackers - Cardiovascular Exam Cardiovascular Exam: REGULAR RHYTHM - GI/Abdominal Exam GI & Abdominal Exam: Normal Bowel Sounds, No tenderness, No bruits - Extremities Exam Extremities exam: Positive for: normal inspection - Back Exam Back exam: NORMAL INSPECTION - Neurological Exam Neurological exam: Alert, Oriented x3 Additional comments: No focal motor/sensory deficit. - Psychiatric Exam Psychiatric exam: Anxious - Skin Skin Exam: Warm Assessment and Plan - Assessment and Plan (Free Text) Plan: Abdominal aortic aneurym -Surgery consulted, Dr. Lawrence -Cardiology Dr. Zeng, cleared for surgery - noted in previous notes during [place] admission -Abdominal U/S shows infrarenal abdominal aortic aneurysm up to 4.4cm. Intramural thrombus noted along right aspect of aorta -CT abd shows AAA measures now 4.7 x 4.8cm compare to prior 3.8x 4.1cm. Considerable thrombus identified -Patient transferred from [facility] plan for with surgical team -On schedule for Thursday OR with Dr. Lawrence HTN -Optimize for surgery -Continue HCTZ 25mg po Hx of DVT -Follow up venous doppler PVD -Pentoxil 400mg po DM -A1C 6.1 on 03/20/18 -FS Q6h -ISS -Hypoglycemic protocol -Hold DM meds Prophylactic measures -Protonix -Lovenox -SCD C/I due to PVD Disposition: Plan for possible EVAR, Thursday with Dr. Lawrence DW Jaleesa Segundo DO, PGY-1 <Luna Glez V - Last Filed: 03/28/18 23:46> Objective - Vital Signs/Intake and Output Vital Signs (last 24 hours): Temp Pulse Resp BP Pulse Ox 98.3 F 66 18 107/62 98 03/28/18 15:32 03/28/18 15:32 03/28/18 15:32 03/28/18 15:32 03/28/18 15:32 - Medications Medications: Current Medications Dextrose (Dextrose 50% Inj) 0 ml IVP .STAT PRN; Protocol PRN Reason: Hypoglycemia Protocol Dextrose (Glutose 15) 0 gm PO .ONCE PRN; Protocol PRN Reason: Hypoglycemia Protocol Glucagon (Glucagen Diagnostic Kit) 0 mg IM .STAT PRN; Protocol PRN Reason: Hypoglycemia Protocol Hydrochlorothiazide (Hydrodiuril) 25 mg PO DAILY [facility] Last Admin: 03/28/18 10:18 Dose: Not Given Sodium Chloride (Sodium Chloride 0.9%) 1,000 mls @ 75 mls/hr IV .[id number] [facility] Last Admin: 03/27/18 21:59 Dose: Not Given Dextrose (Dextrose 5% In Water 1000 Ml) 1,000 mls @ 0 mls/hr IV .Q0M PRN; Protocol; Per Protocol PRN Reason: Hypoglycemia Protocol Insulin Human Regular (Novolin R) 0 unit SC ACHS [facility] PRN Reason: Protocol Last Admin: 03/28/18 21:38 Dose: Not Given Meclizine HCl (Antivert) 25 mg PO DAILY [facility] Last Admin: 03/28/18 10:18 Dose: Not Given Metoprolol Succinate (Toprol Xl) 12.5 mg PO DAILY [facility] Pantoprazole Sodium (Protonix Inj) 40 mg IVP DAILY [facility] Pentoxifylline (Pentoxil) 400 mg PO DAILY [facility] Last Admin: 03/28/18 10:18 Dose: Not Given Sitagliptin Phosphate (Januvia) 50 mg PO DAILY [facility] Last Admin: 03/28/18 12:32 Dose: 50 mg - Labs Labs: 03/28/18 07:27 PT 11.4 SECONDS (9.7-12.2) 03/26/18 07:53 INR 1.0 03/26/18 07:53 Attending/Attestation - Attestation I have personally seen and examined this patient.: Yes I have fully participated in the care of the patient.: Yes I have reviewed all pertinent clinical information, including history, physical exam and plan: Yes Notes (Text): Patient seen, examined, and case discussed with medical affairs director. Patient is in good spirits. Patient denies acute complaints. He is aware he is going for surgery tomorrow. We have discontinue anticoagulation. NPO with acchecks Q6H. Patient has had chest xray and CT chest in [facility] record; showing fibrotic changes and interstitial lung disease. Patient is a known smoker and we have explained to him he should quit given his AAA. Patient's oxygenation above 95% on room airway. Patient underwent cardiac clearance workup prior to surgery, deemed low risk for perioperative cardiac event. I have added low dose beta-juan jose to regimen with holding parameters and blood pressure is controlled. Assessment/Plan 1) Abdominal aortic aneurysm * Vascular surgery (Dr. Lawrence) on case-->help appreciated * Preoperative/intraoperative/post operative management per surgery * Cardiology (Dr. Zeng) on case-->help appreciated * Underwent cardiac workup and clearance while at [place]-->seen EMR for further details * s/p stress test showing no evidence of ischemia * As per ACC/AHA guidelines he can proceed with planned surgery of AAA with low risk for perioperative cardiac event * keep pt on bb * Abdominal U/S shows infrarenal abdominal aortic aneurysm up to 4.4cm. Intramural thrombus noted along right aspect of aorta * CT abd shows AAA measures now 4.7 x 4.8cm compare to prior 3.8x 4.1cm. Considerable thrombus identified * Patient transferred from [facility] plan for [facility], planned for March 29 * Will keep antihypertensives on board 2) Hypertension * Continue HCTZ 25mg po daily * Recommended for beta juan jose by cardiology-->low dose Toprol XL 12.5mg PO daily with hold parameters * Blood pressure controlled * Will monitor blood pressure 3) Hx of DVT * Follow up venous doppler lower extremities--unclear how recent clot was; patient refused * Contraindications to SCDS 4) History of PVD * Pentoxil 400mg PO daily 5) History of Diabetes * A1C 6.1 on 03/20/18 * Accuchecks Q6H * ISS switched to low dose protocol * Hypoglycemic protocol * Hold DM meds on admission until surgery date was clarified; c/w Januvia and held Amaryl 6) Prophylactic measures * Protonix 40mg PO daily * held Lovenox 40mg subqdaily secondary to surgery on 03/29 * SCD C/I due to PVD * NPO after midnight for surgery in the AM for EVAR * Surgery and anesthesia to explain risks and benefits of procedure prior to OR.
[2018-03-28] MEDS: Enoxaparin 40 mg Syringe SC SCH (10:18)
[2018-03-29] MEDS: Sodium Chloride 0.9% 1,000 ML IV SCH ×3 (01:10→22:55)
[2018-03-29 07:38] LABS: BASO % 0.5 % (0.0-2.0); EOS # 0.3 K/uL (0.0-0.7); EOS % 4.5 % (0.0-4.0); HEMOGLOBIN 14.6 g/dL (12.0-18.0); LYMPH # 1.9 K/uL (1.0-4.3); LYMPH % 25.5 % (20.0-40.0); MEAN CORPUSCULAR HEMOGLOBIN 33.2 pg (27.0-31.0); MEAN CORPUSCULAR HGB CONC 34.5 g/dL (33.0-37.0); MEAN PLATELET VOLUME 8.6 fL (7.2-11.7); MONO # 0.8 K/uL (0.0-0.8); MONO % 10.5 % (0.0-10.0); NEUT # 4.4 K/uL (1.8-7.0); RBC 4.41 Mil/uL (4.40-5.90); RED CELL DISTRIBUTION WIDTH 13.3 % (11.5-14.5); WHITE BLOOD COUNT 7.4 K/uL (4.8-10.8)
[2018-03-29] MEDS: (Novolin R) Insulin Human Regular 100 units/ml vial SC SCH ×4 (07:44→23:12)
[2018-03-29 08:15] LABS: ALB/GLOB RATIO 1.2 (1.0-2.1); ALBUMIN 3.5 g/dL (3.5-5.0); ALT/SGPT 24 U/L (21-72); AST/SGOT 19 U/L (17-59); BLOOD UREA NITROGEN 45 mg/dL (9-20); CALCIUM 9.5 mg/dl (8.6-10.4); GFR AFRICAN-AMERICAN > 60; GFR NON-AFRICAN AMERICAN 53
--- NOTE | 2018-03-29 08:57 | CP.PCM.PN ---
Subjective - Date & Time of Evaluation Date of Evaluation: 03/29/18 Time of Evaluation: 08:55 - Subjective Subjective: plan for OR today no events over the weekend Objective - Vital Signs/Intake and Output Vital Signs (last 24 hours): Temp Pulse Resp BP Pulse Ox 98.6 F 61 18 114/73 95 03/29/18 07:10 03/29/18 07:10 03/29/18 07:10 03/29/18 07:10 03/29/18 07:10 Intake and Output: 03/29/18 03/29/18 06:59 18:59 Intake Total 0 Balance 0 - Medications Medications: Current Medications Dextrose (Dextrose 50% Inj) 0 ml IVP .STAT PRN; Protocol PRN Reason: Hypoglycemia Protocol Dextrose (Glutose 15) 0 gm PO .ONCE PRN; Protocol PRN Reason: Hypoglycemia Protocol Glucagon (Glucagen Diagnostic Kit) 0 mg IM .STAT PRN; Protocol PRN Reason: Hypoglycemia Protocol Hydrochlorothiazide (Hydrodiuril) 25 mg PO DAILY [facility] Last Admin: 03/28/18 10:18 Dose: Not Given Sodium Chloride (Sodium Chloride 0.9%) 1,000 mls @ 75 mls/hr IV .[id number] [facility] Last Admin: 03/29/18 01:10 Dose: Not Given Dextrose (Dextrose 5% In Water 1000 Ml) 1,000 mls @ 0 mls/hr IV .Q0M PRN; Protocol; Per Protocol PRN Reason: Hypoglycemia Protocol Insulin Human Regular (Novolin R) 0 unit SC ACHS [facility] PRN Reason: Protocol Last Admin: 03/29/18 07:44 Dose: Not Given Meclizine HCl (Antivert) 25 mg PO DAILY [facility] Last Admin: 03/28/18 10:18 Dose: Not Given Metoprolol Succinate (Toprol Xl) 12.5 mg PO DAILY [facility] Pantoprazole Sodium (Protonix Inj) 40 mg IVP DAILY [facility] Pentoxifylline (Pentoxil) 400 mg PO DAILY [facility] Last Admin: 03/28/18 10:18 Dose: Not Given Sitagliptin Phosphate (Januvia) 50 mg PO DAILY [facility] Last Admin: 03/28/18 12:32 Dose: 50 mg - Labs Labs: 03/29/18 07:22 03/29/18 07:22 PT 11.4 SECONDS (9.7-12.2) 03/26/18 07:53 INR 1.0 03/26/18 07:53 - Constitutional Appears: Well - Head Exam Head Exam: ATRAUMATIC, NORMAL INSPECTION, NORMOCEPHALIC - Eye Exam Eye Exam: EOMI, Normal appearance, PERRL Pupil Exam: NORMAL ACCOMODATION, PERRL - ENT Exam ENT Exam: Mucous Membranes Moist, Normal Exam - Neck Exam Neck Exam: Full ROM, Normal Inspection. absent: Lymphadenopathy - Respiratory Exam Respiratory Exam: Clear to Ausculation Bilateral, NORMAL BREATHING PATTERN - Cardiovascular Exam Cardiovascular Exam: REGULAR RHYTHM, +S1, +S2. absent: Murmur - GI/Abdominal Exam GI & Abdominal Exam: Soft, Normal Bowel Sounds. absent: Tenderness - Rectal Exam Rectal Exam: NORMAL INSPECTION - Extremities Exam Extremities Exam: Full ROM, Normal Capillary Refill, Normal Inspection. absent : Joint Swelling, Pedal Edema - Back Exam Back Exam: NORMAL INSPECTION - Neurological Exam Neurological Exam: Alert, Awake, CN II-XII Intact, Normal Gait, Oriented x3 - Psychiatric Exam Psychiatric exam: Normal Affect, Normal Mood - Skin Skin Exam: Dry, Intact, Normal Color, Warm Assessment and Plan (1) Preop cardiovascular exam Assessment & Plan: stable to proceed with planned surgery with low risk for perioperative cardiac event cont bb Status: Acute (2) AAA (abdominal aortic aneurysm) Status: Chronic (3) HTN (hypertension) Assessment & Plan: cont hctz and bb Status: Chronic (4) PVD (peripheral vascular disease) Status: Chronic
--- NOTE | 2018-03-29 11:55 | CP.PCM.PN ---
<Crissy Alvarado - Last Filed: 03/29/18 16:28> Subjective - Date & Time of Evaluation Date of Evaluation: 03/29/18 Time of Evaluation: 09:50 - Subjective Subjective: Patient seen and examined at bedside. No acute events reported overnight. Patient is slightly agitated because he had to wait 3 days to have his surgery. Patient is made aware that his procedure will be this afternoon. Patient denies having any complaints. He further denies headache, dizziness, abdominal pain, nausea, vomiting, or diarrhea. Objective - Vital Signs/Intake and Output Vital Signs (last 24 hours): Temp Pulse Resp BP Pulse Ox 98.6 F 61 18 114/73 95 03/29/18 07:10 03/29/18 07:10 03/29/18 07:10 03/29/18 07:10 03/29/18 07:10 Intake and Output: 03/29/18 03/29/18 06:59 18:59 Intake Total 0 Balance 0 - Medications Medications: Current Medications Dextrose (Dextrose 50% Inj) 0 ml IVP .STAT PRN; Protocol PRN Reason: Hypoglycemia Protocol Dextrose (Glutose 15) 0 gm PO .ONCE PRN; Protocol PRN Reason: Hypoglycemia Protocol Glucagon (Glucagen Diagnostic Kit) 0 mg IM .STAT PRN; Protocol PRN Reason: Hypoglycemia Protocol Hydrochlorothiazide (Hydrodiuril) 25 mg PO DAILY [facility] Last Admin: 03/28/18 10:18 Dose: Not Given Sodium Chloride (Sodium Chloride 0.9%) 1,000 mls @ 75 mls/hr IV .[id number] [facility] Last Admin: 03/29/18 01:10 Dose: Not Given Dextrose (Dextrose 5% In Water 1000 Ml) 1,000 mls @ 0 mls/hr IV .Q0M PRN; Protocol; Per Protocol PRN Reason: Hypoglycemia Protocol Insulin Human Regular (Novolin R) 0 unit SC ACHS [facility] PRN Reason: Protocol Last Admin: 03/29/18 11:42 Dose: Not Given Meclizine HCl (Antivert) 25 mg PO DAILY [facility] Last Admin: 03/29/18 10:40 Dose: Not Given Metoprolol Succinate (Toprol Xl) 12.5 mg PO DAILY [facility] Pantoprazole Sodium (Protonix Inj) 40 mg IVP DAILY [facility] Last Admin: 03/29/18 11:42 Dose: Not Given Pentoxifylline (Pentoxil) 400 mg PO DAILY [facility] Last Admin: 03/29/18 11:42 Dose: Not Given Sitagliptin Phosphate (Januvia) 50 mg PO DAILY [facility] Last Admin: 03/28/18 12:32 Dose: 50 mg - Labs Labs: 03/29/18 07:22 03/29/18 07:22 PT 11.4 SECONDS (9.7-12.2) 03/26/18 07:53 INR 1.0 03/26/18 07:53 - Additional Findings Additional findings: - Constitutional Appears: No Acute Distress - Head Exam Head Exam: NORMAL INSPECTION - Eye Exam Eye Exam: PERRL - ENT Exam ENT Exam: Normal Exam - Neck Exam Neck exam: Positive for: Normal Inspection - Respiratory Exam Respiratory Exam: Clear to Auscultation bilaterally, no wheezes, no crackers - Cardiovascular Exam Cardiovascular Exam: REGULAR RHYTHM - GI/Abdominal Exam GI & Abdominal Exam: Normal Bowel Sounds, No tenderness, No bruits - Extremities Exam Extremities exam: Positive for: normal inspection - Back Exam Back exam: NORMAL INSPECTION - Neurological Exam Neurological exam: Alert, Oriented x3 Additional comments: No focal motor/sensory deficit. - Psychiatric Exam Psychiatric exam: Anxious - Skin Skin Exam: Warm Assessment and Plan - Assessment and Plan (Free Text) Assessment: Abdominal aortic aneurym -Surgery consulted, Dr. Lawrence -Cardiology Dr. Zeng, cleared for surgery - noted in previous notes during [facility] admission -Abdominal U/S shows infrarenal abdominal aortic aneurysm up to 4.4cm. Intramural thrombus noted along right aspect of aorta -CT abd shows AAA measures now 4.7 x 4.8cm compare to prior 3.8x 4.1cm. Considerable thrombus identified -Patient transferred from [facility] plan for with surgical team -Planned for AAA endovascular repair this afternoon with Dr. Lawrence HTN -Monitor BP -Continue HCTZ 25mg po -Metoprolol 12.5mg po Hx of DVT -venous doppler ordered, patient refused -SCD C/I due to PVD PVD -Pentoxil 400mg po DM -A1C 6.1 on 03/20/18 -accuchecks Q6h -ISS low protocol -Hypoglycemic protocol -Hold DM meds Prophylactic measures -Protonix -Lovenox -SCD C/I due to PVD <Neil Diaz - Last Filed: 03/29/18 19:23> Objective - Vital Signs/Intake and Output Vital Signs (last 24 hours): Temp Pulse Resp BP Pulse Ox 98.6 F 61 18 114/73 95 03/29/18 07:10 03/29/18 07:10 03/29/18 07:10 03/29/18 07:10 03/29/18 07:10 - Medications Medications: Current Medications Dextrose (Dextrose 50% Inj) 0 ml IVP .STAT PRN; Protocol PRN Reason: Hypoglycemia Protocol Dextrose (Glutose 15) 0 gm PO .ONCE PRN; Protocol PRN Reason: Hypoglycemia Protocol Glucagon (Glucagen Diagnostic Kit) 0 mg IM .STAT PRN; Protocol PRN Reason: Hypoglycemia Protocol Hydrochlorothiazide (Hydrodiuril) 25 mg PO DAILY [facility] Last Admin: 03/29/18 11:56 Dose: Not Given Sodium Chloride (Sodium Chloride 0.9%) 1,000 mls @ 75 mls/hr IV .[id number] [facility] Last Admin: 03/29/18 01:10 Dose: Not Given Dextrose (Dextrose 5% In Water 1000 Ml) 1,000 mls @ 0 mls/hr IV .Q0M PRN; Protocol; Per Protocol PRN Reason: Hypoglycemia Protocol Insulin Human Regular (Novolin R) 0 unit SC ACHS [facility] PRN Reason: Protocol Last Admin: 03/29/18 18:30 Dose: Not Given Meclizine HCl (Antivert) 25 mg PO DAILY [facility] Last Admin: 03/29/18 10:40 Dose: Not Given Metoprolol Succinate (Toprol Xl) 12.5 mg PO DAILY [facility] Last Admin: 03/29/18 11:57 Dose: Not Given Pantoprazole Sodium (Protonix Inj) 40 mg IVP DAILY [facility] Last Admin: 03/29/18 11:42 Dose: Not Given Pentoxifylline (Pentoxil) 400 mg PO DAILY [facility] Last Admin: 03/29/18 11:42 Dose: Not Given Sitagliptin Phosphate (Januvia) 50 mg PO DAILY [facility] Last Admin: 03/28/18 12:32 Dose: 50 mg - Labs Labs: 03/29/18 07:22 03/29/18 07:22 PT 11.4 SECONDS (9.7-12.2) 03/26/18 07:53 INR 1.0 03/26/18 07:53 Attending/Attestation - Attestation I have personally seen and examined this patient.: No I have fully participated in the care of the patient.: Yes I have reviewed all pertinent clinical information, including history, physical exam and plan: Yes Notes (Text): 03/29/18 19:22 I was not able to see this patient as the patient was taken down for surgery. However the care of this patient (assessment and plan) were thoroughly gone over with the resident. Dr. Stewart to take over care on 03/30/18. Neil Diaz D.O.
[2018-03-29] MEDS: Metoprolol Succinate 12.5 mg XL PO SCH (11:57)
[2018-03-29] MEDS ORDERED: Nitroglycerin 50mg in D5W 50 MG/250 ML BOTTLE IV ONE (13:29)
[2018-03-29] MEDS ORDERED: HEPARIN-NS 5,000 UNITS/500 ML 5,000 UNIT/500 ML BAG IV ONE ×3 (13:38→19:41)
[2018-03-29] MEDS ORDERED: Absorbable Gelatin Sponge Size 100 ONE (13:39)
[2018-03-29] MEDS ORDERED: ceFAZolin 1 gm in NS 2 GM/200 ML BAG IVPB ONE (13:39)
[2018-03-29] MEDS ORDERED: Iodixanol 320 MG/ML 200 ML BOTTLE IV ONE (13:40)
[2018-03-29] MEDS ORDERED: Labetalol 25mg/5ml Syringe ONE ×2 (13:44→16:40)
[2018-03-29] MEDS ORDERED: Phenylephrine 10 mg/ml Inj ONE (13:44)
[2018-03-29] MEDS ORDERED: ePHEDrine 50 mg/ml Inj ONE (13:44)
[2018-03-29] MEDS ORDERED: Propofol 10 mg/ml Inj (20 ML) ONE (13:50)
[2018-03-29] MEDS ORDERED: Lidocaine 4% (Laryng-O-Jet) Kit MM ONE (13:50)
[2018-03-29] MEDS ORDERED: Lactated Ringer's 1,000 ML IV ONE ×2 (15:55→21:13)
[2018-03-29] MEDS ORDERED: Sodium Chloride 0.9% 1,000 ML IV ONE (15:55)
[2018-03-29] MEDS ORDERED: Sodium Chloride 0.9% 500 ML IV ONE (16:05)
[2018-03-29] MEDS ORDERED: Thrombin Topical 5,000 Int Units Spray Kit ONE (18:27)
[2018-03-29] MEDS ORDERED: Rocuronium 10 mg/ml (10 ml) ONE (18:56)
[2018-03-29] MEDS ORDERED: Thrombin Topical 20,000 Intl Units Spray Kit TOP ONE (20:29)
[2018-03-29 20:38] LABS: MEAN CELL VOLUME 96.2 fL (80.0-94.0); MEAN CORPUSCULAR HEMOGLOBIN 32.9 pg (27.0-31.0); MEAN CORPUSCULAR HGB CONC 34.2 g/dL (33.0-37.0); MEAN PLATELET VOLUME 7.7 fL (7.2-11.7); RBC 3.37 Mil/uL (4.40-5.90); RED CELL DISTRIBUTION WIDTH 13.4 % (11.5-14.5)
[2018-03-29 20:48] LABS: HEMOGLOBIN 11.1 g/dL (12.0-18.0); WHITE BLOOD COUNT 11.6 K/uL (4.8-10.8)
[2018-03-29] MEDS ORDERED: Oxycodone/Acetaminophen 5/325 mg Tab PO PRN (21:14)
[2018-03-29] MEDS ORDERED: HYDROmorphone 0.5 mg/0.5 ml ISec IVP PRN (21:14)
--- NOTE | 2018-03-29 21:17 | PCM.SURG1 ---
Surgeon's Initial Post Op Note - Surgeon's Notes Surgeon: Dr. Lawrence Director Strategy: Dr. Warren PGY2 Type of Anesthesia: General Endo Pre-Operative Diagnosis: Abdominal Aortic Anuerysm Operative Findings: See operative dictation Post-Operative Diagnosis: Abdominal Aortic Aneurysm Operation Performed: Endovascular aortic aneurism repair Specimen/Specimens Removed: None Estimated Blood Loss: EBL {In ML}: 300 Blood Products Given: N/A Drains Used: No Drains Post-Op Condition: Good Date of Surgery/Procedure: 03/29/18 Time of Surgery/Procedure: 21:17
--- NOTE | 2018-03-29 22:33 | CP.PCM.CON ---
History of Present Illness - History of Present Illness History of Present Illness: CCM 83 yo male with hx HTN /DM /HLD /COPD /DVT /IVC filter /CKD /PVD /CVA /RLE fem- pop bypass/ AAA today had endovascular repair. EBL 150cc. /Received 2 Liters / UO 700 cc. Pt extubated and sent to ICU for post op care. Pt denies pain /sob / nausea. ROS- asn oted All- NKDA Social-+cigar/ no etoh or drugs Meds- reviewed FH- Unknown Lethargic, arousable, nad Neck- no jvd Lungs- bilat bs Hert-rr aBd- benign EXT- bilat groin dressings, distal pulses intact with doppler, feet warm Labs, x-rays reviewed A&P S/P Endovascular AAA repair HTN DM HLD COPD Hx CVA Hx DVT /IVC filter Cont meds maintainence fluid analgesia prn Incentive Spirometry bs contro Maintain optimal lytes f/u labs Past Patient History - Past Social History Smoking Status: Current Some Days Smoker - CARDIAC Hx Cardiac Disorders: Yes Hx Hypertension: Yes - PULMONARY Hx Respiratory Disorders: Yes - NEUROLOGICAL Hx Neurological Disorder: No - HEENT Hx HEENT Problems: No - RENAL Hx Chronic Kidney Disease: No - ENDOCRINE/METABOLIC Hx Endocrine Disorders: Yes Hx Diabetes Mellitus Type 2: Yes - HEMATOLOGICAL/ONCOLOGICAL Hx Blood Disorders: No - INTEGUMENTARY Hx Dermatological Problems: No - MUSCULOSKELETAL/RHEUMATOLOGICAL Hx Musculoskeletal Disorders: Yes Hx Arthritis: Yes Hx Back Pain: Yes Hx Falls: No - GASTROINTESTINAL Hx Gastrointestinal Disorders: No - GENITOURINARY/GYNECOLOGICAL Hx Genitourinary Disorders: No - PSYCHIATRIC Hx Psychophysiologic Disorder: Yes Hx Anxiety: Yes Hx Substance Use: No - SURGICAL HISTORY Hx Surgeries: Yes Other/Comment: RLE vascular surgery Fame-Pop bypass. IVC filter. Skin Nose Ca - ANESTHESIA Hx Anesthesia: Yes Hx Anesthesia Reactions: No Meds Allergies/Adverse Reactions: Allergies Allergy/AdvReac Type Severity Reaction Status Date / Time No Known Allergies Allergy Verified 03/19/18 10:19 - Medications Medications: Current Medications Dextrose (Dextrose 50% Inj) 0 ml IVP .STAT PRN; Protocol PRN Reason: Hypoglycemia Protocol Dextrose (Glutose 15) 0 gm PO .ONCE PRN; Protocol PRN Reason: Hypoglycemia Protocol Glucagon (Glucagen Diagnostic Kit) 0 mg IM .STAT PRN; Protocol PRN Reason: Hypoglycemia Protocol Hydrochlorothiazide (Hydrodiuril) 25 mg PO DAILY [facility] Last Admin: 03/29/18 11:56 Dose: Not Given Hydromorphone HCl (Dilaudid) 0.5 mg IVP Q5M PRN PRN Reason: Pain, moderate (4-7) Stop: 03/29/18 23:14 Sodium Chloride (Sodium Chloride 0.9%) 1,000 mls @ 75 mls/hr IV .[id number] [facility] Last Admin: 03/29/18 01:10 Dose: Not Given Dextrose (Dextrose 5% In Water 1000 Ml) 1,000 mls @ 0 mls/hr IV .Q0M PRN; Protocol; Per Protocol PRN Reason: Hypoglycemia Protocol Cefazolin Sodium 500 mg/ (Sodium Chloride) 50 mls @ 100 mls/hr IVPB Q8 [facility] PRN Reason: Protocol Insulin Human Regular (Novolin R) 0 unit SC ACHS [facility] PRN Reason: Protocol Last Admin: 03/29/18 18:30 Dose: Not Given Meclizine HCl (Antivert) 25 mg PO DAILY [facility] Last Admin: 03/29/18 10:40 Dose: Not Given Metoprolol Succinate (Toprol Xl) 12.5 mg PO DAILY [facility] Last Admin: 03/29/18 11:57 Dose: Not Given Ondansetron HCl (Zofran Inj) 4 mg IVP ONCE PRN PRN Reason: Nausea/Vomiting Stop: 03/29/18 23:15 Oxycodone/Acetaminophen (Percocet 5/325 Mg Tab) 1 tab PO Q4H PRN PRN Reason: Pain, moderate (4-7) Stop: 04/01/18 21:15 Pantoprazole Sodium (Protonix Inj) 40 mg IVP DAILY [facility] Last Admin: 03/29/18 11:42 Dose: Not Given Pentoxifylline (Pentoxil) 400 mg PO DAILY [facility] Last Admin: 03/29/18 11:42 Dose: Not Given Sitagliptin Phosphate (Januvia) 50 mg PO DAILY [facility] Last Admin: 03/28/18 12:32 Dose: 50 mg Results - Vital Signs Recent Vital Signs: Last Vital Signs Temp 97 F L 03/29/18 21:13 Pulse 88 03/29/18 21:45 Resp 12 03/29/18 21:45 BP 136/74 03/29/18 21:45 Pulse Ox 98 03/29/18 21:45 - Labs Result Diagrams: 03/29/18 20:34 03/29/18 07:22 Labs: Laboratory Results - last 24 hr 03/29/18 03/29/18 03/29/18 06:25 07:22 07:22 WBC 7.4 RBC 4.41 Hgb 14.6 Hct 42.3 MCV 96.0 H MCH 33.2 H MCHC 34.5 RDW 13.3 Plt Count 172 MPV 8.6 Neut % (Auto) 59.0 Lymph % (Auto) 25.5 Cascade % (Auto) 10.5 H Eos % (Auto) 4.5 H Baso % (Auto) 0.5 Neut # (Auto) 4.4 Lymph # (Auto) 1.9 Cascade # (Auto) 0.8 Eos # (Auto) 0.3 Baso # (Auto) 0.0 Sodium 141 Potassium 4.7 Chloride 103 Carbon Dioxide 29 Anion Gap 14 BUN 45 H Creatinine 1.3 Est GFR ( Amer) > 60 Est GFR (Non-Af Amer) 53 POC Glucose (mg/dL) 153 H Random Glucose 159 H Calcium 9.5 Phosphorus 3.8 Magnesium 2.0 Total Bilirubin 0.7 AST 19 ALT 24 Alkaline Phosphatase 83 Total Protein 6.5 Albumin 3.5 Globulin 3.0 Albumin/Globulin Ratio 1.2 03/29/18 03/29/18 03/29/18 12:08 20:34 21:36 WBC 11.6 H D RBC 3.37 L Hgb 11.1 L D Hct 32.4 L MCV 96.2 H MCH 32.9 H MCHC 34.2 RDW 13.4 Plt Count 145 MPV 7.7 Neut % (Auto) Lymph % (Auto) Cascade % (Auto) Eos % (Auto) Baso % (Auto) Neut # (Auto) Lymph # (Auto) Cascade # (Auto) Eos # (Auto) Baso # (Auto) Sodium Potassium Chloride Carbon Dioxide Anion Gap BUN Creatinine Est GFR ( Amer) Est GFR (Non-Af Amer) POC Glucose (mg/dL) 151 H 180 H Random Glucose Calcium Phosphorus Magnesium Total Bilirubin AST ALT Alkaline Phosphatase Total Protein Albumin Globulin Albumin/Globulin Ratio Assessment & Plan (1) AAA (abdominal aortic aneurysm) Status: Chronic Priority: High (2) COPD (chronic obstructive pulmonary disease) Status: Chronic Priority: Medium (3) HTN (hypertension) Status: Chronic Priority: Medium (4) PVD (peripheral vascular disease) Status: Chronic Priority: High
[2018-03-30] MEDS: Sodium Chloride 0.9% 1,000 ML IV SCH (04:24)
[2018-03-30 06:59] LABS: BASO # 0.1 K/uL (0.0-0.2); BASO % 0.6 % (0.0-2.0); EOS # 0.1 K/uL (0.0-0.7); EOS % 0.5 % (0.0-4.0); HEMOGLOBIN 11.6 g/dL (12.0-18.0); LYMPH % 9.1 % (20.0-40.0); MEAN CELL VOLUME 96.7 fL (80.0-94.0); MEAN CORPUSCULAR HEMOGLOBIN 33.2 pg (27.0-31.0); MEAN CORPUSCULAR HGB CONC 34.3 g/dL (33.0-37.0); MONO # 0.8 K/uL (0.0-0.8); MONO % 7.2 % (0.0-10.0); NEUT % 82.6 % (50.0-75.0); PLATELET COUNT 125 K/uL (130-400); RBC 3.51 Mil/uL (4.40-5.90); RED CELL DISTRIBUTION WIDTH 13.9 % (11.5-14.5)
[2018-03-30 08:36] LABS: BANDS 11 % (0-2); LYMPHOCYTE 9 % (20-40); MONOCYTE 5 % (0-10); NEUTROPHIL 75 % (50-75); PLATELET ESTIMATE SLIGHTLY DECREASED (NORMAL); TOTAL CELLS COUNTED 100
[2018-03-30] MEDS: (Novolin R) Insulin Human Regular 100 units/ml vial SC SCH ×5 (09:14→21:50)
[2018-03-30] MEDS: Metoprolol Succinate 12.5 mg XL PO SCH (09:15)
[2018-03-30] MEDS ORDERED: Pantoprazole 40 mg EC Tab PO SCH (10:03)
--- NOTE | 2018-03-30 10:27 | CP.PCM.PN ---
Subjective - Date & Time of Evaluation Date of Evaluation: 03/30/18 Time of Evaluation: 10:24 - Subjective Subjective: Vascular Surgery Progress Note for Dr. Flynn This 83[facility] events overnight. Patient has warm lower extremities with pulses. Immobilizer removed this AM. He has been out of bed to chairs. Tolerating regular diet. Groin without hematoma. RLE dressing with old sanguinous staining and LLE dressing clean. No clinical complaints at this time. Objective - Vital Signs/Intake and Output Vital Signs (last 24 hours): Temp Pulse Resp BP Pulse Ox 98.2 F 92 H 18 162/69 H 95 03/30/18 08:00 03/30/18 09:00 03/30/18 09:00 03/30/18 09:00 03/30/18 09:00 Intake and Output: 03/30/18 03/30/18 06:59 18:59 Intake Total 2100 150 Output Total 925 50 Balance 1175 100 - Medications Medications: Current Medications Dextrose (Dextrose 50% Inj) 0 ml IVP .STAT PRN; Protocol PRN Reason: Hypoglycemia Protocol Dextrose (Glutose 15) 0 gm PO .ONCE PRN; Protocol PRN Reason: Hypoglycemia Protocol Enoxaparin Sodium (Lovenox) 30 mg SC DAILY [facility] Glucagon (Glucagen Diagnostic Kit) 0 mg IM .STAT PRN; Protocol PRN Reason: Hypoglycemia Protocol Hydrochlorothiazide (Hydrodiuril) 25 mg PO DAILY [facility] Last Admin: 03/30/18 09:13 Dose: 25 mg Dextrose (Dextrose 5% In Water 1000 Ml) 1,000 mls @ 0 mls/hr IV .Q0M PRN; Protocol; Per Protocol PRN Reason: Hypoglycemia Protocol Cefazolin Sodium 500 mg/ (Sodium Chloride) 50 mls @ 100 mls/hr IVPB Q8 [facility] PRN Reason: Protocol Last Admin: 03/30/18 06:48 Dose: 100 mls/hr Insulin Human Regular (Novolin R) 0 unit SC ACHS [facility] PRN Reason: Protocol Last Admin: 03/30/18 09:20 Dose: Not Given Meclizine HCl (Antivert) 25 mg PO DAILY [facility] Last Admin: 03/29/18 10:40 Dose: Not Given Metoprolol Succinate (Toprol Xl) 12.5 mg PO DAILY [facility] Last Admin: 03/30/18 09:15 Dose: 12.5 mg Oxycodone/Acetaminophen (Percocet 5/325 Mg Tab) 1 tab PO Q4H PRN PRN Reason: Pain, moderate (4-7) Stop: 04/01/18 21:15 Pantoprazole Sodium (Protonix Ec Tab) 40 mg PO DAILY [facility] Pentoxifylline (Pentoxil) 400 mg PO DAILY [facility] Last Admin: 03/30/18 09:14 Dose: 400 mg Sitagliptin Phosphate (Januvia) 50 mg PO DAILY [facility] Last Admin: 03/28/18 12:32 Dose: 50 mg - Labs Labs: 03/30/18 06:52 03/29/18 07:22 PT 11.4 SECONDS (9.7-12.2) 03/26/18 07:53 INR 1.0 03/26/18 07:53 - Constitutional Appears: Non-toxic, No Acute Distress - Head Exam Head Exam: ATRAUMATIC, NORMOCEPHALIC - Eye Exam Eye Exam: EOMI - ENT Exam ENT Exam: Mucous Membranes Moist - Respiratory Exam Respiratory Exam: NORMAL BREATHING PATTERN - Cardiovascular Exam Cardiovascular Exam: +S1, +S2 - GI/Abdominal Exam GI & Abdominal Exam: Soft. absent: Distended, Firm, Guarding, Rigid, Tenderness - Extremities Exam Additional comments: RLE dressing in place no hematoma, LLE dressing in place no hematoma - Neurological Exam Neurological Exam: Alert, Awake - Skin Skin Exam: Dry, Intact Assessment and Plan - Assessment and Plan (Free Text) Assessment: 83M POD#1 s/p EVAR and doing well Regular diet DVT PPX Ambulate Resume home meds Recommend Transfer to [facility] floor D/W Dr. Howard Warren PGY2
--- NOTE | 2018-03-30 11:19 | CP.PCM.PN ---
Subjective - Date & Time of Evaluation Date of Evaluation: 03/30/18 Time of Evaluation: 11:18 - Subjective Subjective: s/p EVAR Objective - Vital Signs/Intake and Output Vital Signs (last 24 hours): Temp Pulse Resp BP Pulse Ox 98.2 F 92 H 18 162/69 H 95 03/30/18 08:00 03/30/18 09:00 03/30/18 09:00 03/30/18 09:00 03/30/18 09:00 Intake and Output: 03/30/18 03/30/18 06:59 18:59 Intake Total 2100 150 Output Total 925 50 Balance 1175 100 - Medications Medications: Current Medications Dextrose (Dextrose 50% Inj) 0 ml IVP .STAT PRN; Protocol PRN Reason: Hypoglycemia Protocol Dextrose (Glutose 15) 0 gm PO .ONCE PRN; Protocol PRN Reason: Hypoglycemia Protocol Enoxaparin Sodium (Lovenox) 30 mg SC DAILY [facility] Glimepiride (Amaryl) 4 mg PO BID [facility] Glucagon (Glucagen Diagnostic Kit) 0 mg IM .STAT PRN; Protocol PRN Reason: Hypoglycemia Protocol Hydrochlorothiazide (Hydrodiuril) 25 mg PO DAILY [facility] Last Admin: 03/30/18 09:13 Dose: 25 mg Dextrose (Dextrose 5% In Water 1000 Ml) 1,000 mls @ 0 mls/hr IV .Q0M PRN; Protocol; Per Protocol PRN Reason: Hypoglycemia Protocol Cefazolin Sodium 500 mg/ (Sodium Chloride) 50 mls @ 100 mls/hr IVPB Q8 [facility] PRN Reason: Protocol Last Admin: 03/30/18 06:48 Dose: 100 mls/hr Insulin Human Regular (Novolin R) 0 unit SC ACHS [facility] PRN Reason: Protocol Last Admin: 03/30/18 09:20 Dose: Not Given Meclizine HCl (Antivert) 25 mg PO DAILY [facility] Last Admin: 03/29/18 10:40 Dose: Not Given Metoprolol Succinate (Toprol Xl) 12.5 mg PO DAILY [facility] Last Admin: 03/30/18 09:15 Dose: 12.5 mg Oxycodone/Acetaminophen (Percocet 5/325 Mg Tab) 1 tab PO Q4H PRN PRN Reason: Pain, moderate (4-7) Stop: 04/01/18 21:15 Pantoprazole Sodium (Protonix Ec Tab) 40 mg PO DAILY [facility] Pentoxifylline (Pentoxil) 400 mg PO DAILY [facility] Last Admin: 03/30/18 09:14 Dose: 400 mg Sitagliptin Phosphate (Januvia) 50 mg PO DAILY [facility] Last Admin: 03/28/18 12:32 Dose: 50 mg Sitagliptin Phosphate (Januvia) 50 mg PO DAILY [facility] - Labs Labs: 03/30/18 06:52 03/29/18 07:22 PT 11.4 SECONDS (9.7-12.2) 03/26/18 07:53 INR 1.0 03/26/18 07:53 - Constitutional Appears: Well - Head Exam Head Exam: ATRAUMATIC, NORMAL INSPECTION, NORMOCEPHALIC - Eye Exam Eye Exam: EOMI, Normal appearance, PERRL Pupil Exam: NORMAL ACCOMODATION, PERRL - ENT Exam ENT Exam: Mucous Membranes Moist, Normal Exam - Neck Exam Neck Exam: Full ROM, Normal Inspection. absent: Lymphadenopathy - Respiratory Exam Respiratory Exam: Clear to Ausculation Bilateral, NORMAL BREATHING PATTERN - Cardiovascular Exam Cardiovascular Exam: REGULAR RHYTHM, +S1, +S2. absent: Murmur - GI/Abdominal Exam GI & Abdominal Exam: Soft, Normal Bowel Sounds. absent: Tenderness - Extremities Exam Extremities Exam: Full ROM, Normal Capillary Refill, Normal Inspection. absent : Joint Swelling, Pedal Edema - Back Exam Back Exam: NORMAL INSPECTION - Neurological Exam Neurological Exam: Alert, Awake, CN II-XII Intact, Normal Gait, Oriented x3 - Psychiatric Exam Psychiatric exam: Normal Affect, Normal Mood - Skin Skin Exam: Dry, Intact, Normal Color, Warm Assessment and Plan (1) Preop cardiovascular exam Assessment & Plan: stable post op Status: Acute (2) AAA (abdominal aortic aneurysm) Assessment & Plan: s/p EVAR groin stable add asa and plavix Status: Chronic (3) HTN (hypertension) Assessment & Plan: cont bb add acei Status: Chronic (4) PVD (peripheral vascular disease) Status: Chronic
--- NOTE | 2018-03-30 12:31 | RAD ---
PROCEDURE: Intraoperative Fluoroscopy. HISTORY: ABDOMINAL AORTIC ANEURYSM FINDINGS: Fluoroscopic assistance was provided. Fluoroscopy time = 1057.8 seconds. Radiation dose = 11.97 mGy. Please refer to the operative report for additional details.
[2018-03-31 04:11] VITALS: RESP 20
[2018-03-31] MEDS: (Novolin R) Insulin Human Regular 100 units/ml vial SC SCH ×3 (07:30→16:54)
[2018-03-31 08:26] LABS: BASO % 0.4 % (0.0-2.0); EOS # 0.2 K/uL (0.0-0.7); EOS % 1.6 % (0.0-4.0); HEMOGLOBIN 11.7 g/dL (12.0-18.0); LYMPH # 1.6 K/uL (1.0-4.3); MEAN CELL VOLUME 96.5 fL (80.0-94.0); MEAN CORPUSCULAR HEMOGLOBIN 33.2 pg (27.0-31.0); MEAN CORPUSCULAR HGB CONC 34.4 g/dL (33.0-37.0); MEAN PLATELET VOLUME 8.3 fL (7.2-11.7); MONO # 1.3 K/uL (0.0-0.8); MONO % 9.4 % (0.0-10.0); NEUT # 10.3 K/uL (1.8-7.0); NEUT % 76.6 % (50.0-75.0); RBC 3.53 Mil/uL (4.40-5.90); RED CELL DISTRIBUTION WIDTH 13.3 % (11.5-14.5); WHITE BLOOD COUNT 13.5 K/uL (4.8-10.8)
[2018-03-31 08:43] LABS: ALB/GLOB RATIO 1.2 (1.0-2.1); ALBUMIN 3.4 g/dL (3.5-5.0); ALT/SGPT 21 U/L (21-72); AST/SGOT 19 U/L (17-59); BLOOD UREA NITROGEN 25 mg/dL (9-20); CALCIUM 8.9 mg/dl (8.6-10.4); GFR AFRICAN-AMERICAN > 60; GFR NON-AFRICAN AMERICAN > 60
--- NOTE | 2018-03-31 09:34 | CP.PCM.PN ---
Subjective - Date & Time of Evaluation Date of Evaluation: 03/31/18 Time of Evaluation: 09:33 - Subjective Subjective: PGY-[address] Stewart's service: Pt seen and examined at bedside. Nursing reports no acute events overnight. Patient reports minimal pain in groin at surgical site when walking but otherwise no complaints. Denies chest pain, SOB, or palpitations. States he feels ready to go home. Objective - Vital Signs/Intake and Output Vital Signs (last 24 hours): Temp Pulse Resp BP Pulse Ox 98.5 F 70 20 105/60 96 03/31/18 07:05 03/31/18 07:05 03/31/18 07:05 03/31/18 07:05 03/31/18 07:05 Intake and Output: 03/31/18 03/31/18 06:59 18:59 Intake Total 290 Output Total 425 Balance -135 - Medications Medications: Current Medications Dextrose (Dextrose 50% Inj) 0 ml IVP .STAT PRN; Protocol PRN Reason: Hypoglycemia Protocol Dextrose (Glutose 15) 0 gm PO .ONCE PRN; Protocol PRN Reason: Hypoglycemia Protocol Enoxaparin Sodium (Lovenox) 30 mg SC DAILY [facility] Glimepiride (Amaryl) 4 mg PO BID [facility] Last Admin: 03/30/18 17:37 Dose: 4 mg Glucagon (Glucagen Diagnostic Kit) 0 mg IM .STAT PRN; Protocol PRN Reason: Hypoglycemia Protocol Hydrochlorothiazide (Hydrodiuril) 25 mg PO DAILY [facility] Last Admin: 03/30/18 09:13 Dose: 25 mg Dextrose (Dextrose 5% In Water 1000 Ml) 1,000 mls @ 0 mls/hr IV .Q0M PRN; Protocol; Per Protocol PRN Reason: Hypoglycemia Protocol Insulin Human Regular (Novolin R) 0 unit SC ACHS [facility] PRN Reason: Protocol Last Admin: 03/30/18 21:50 Dose: Not Given Meclizine HCl (Antivert) 25 mg PO DAILY [facility] Last Admin: 03/30/18 11:21 Dose: 25 mg Metoprolol Succinate (Toprol Xl) 12.5 mg PO DAILY [facility] Last Admin: 03/30/18 09:15 Dose: 12.5 mg Oxycodone/Acetaminophen (Percocet 5/325 Mg Tab) 1 tab PO Q4H PRN PRN Reason: Pain, moderate (4-7) Stop: 04/01/18 21:15 Pantoprazole Sodium (Protonix Ec Tab) 40 mg PO DAILY [facility] Pentoxifylline (Pentoxil) 400 mg PO DAILY [facility] Last Admin: 03/30/18 09:14 Dose: 400 mg Sitagliptin Phosphate (Januvia) 50 mg PO DAILY [facility] Last Admin: 03/28/18 12:32 Dose: 50 mg Sitagliptin Phosphate (Januvia) 50 mg PO DAILY [facility] Last Admin: 03/30/18 11:40 Dose: 50 mg - Labs Labs: 03/31/18 08:07 03/31/18 08:07 PT 11.4 SECONDS (9.7-12.2) 03/26/18 07:53 INR 1.0 03/26/18 07:53 - Additional Findings Additional findings: - Constitutional Appears: No Acute Distress - Head Exam Head Exam: NORMAL INSPECTION - Eye Exam Eye Exam: PERRL - ENT Exam ENT Exam: Normal Exam - Neck Exam Neck exam: Positive for: Normal Inspection - Respiratory Exam Respiratory Exam: Clear to Auscultation bilaterally, no wheezes, no crackers - Cardiovascular Exam Cardiovascular Exam: REGULAR RHYTHM - GI/Abdominal Exam GI & Abdominal Exam: Normal Bowel Sounds, No tenderness, No bruits - groin wound - surgical site, no drainage/hematoma - Extremities Exam Extremities exam: Positive for: normal inspection - Back Exam Back exam: NORMAL INSPECTION - Neurological Exam Neurological exam: Alert, Oriented x3 Additional comments: - Psychiatric Exam Psychiatric exam: Anxious - Skin Skin Exam: Warm Assessment and Plan - Assessment and Plan (Free Text) Plan: Abdominal aortic aneurym -Surgery consulted, Dr. Lawrence -Cardiology Dr. Zeng, cleared for surgery - noted in previous notes during [facility] admission -Abdominal U/S shows infrarenal abdominal aortic aneurysm up to 4.4cm. Intramural thrombus noted along right aspect of aorta -CT abd shows AAA measures now 4.7 x 4.8cm compare to prior 3.8x 4.1cm. Considerable thrombus identified -Patient transferred from [facility] plan for with surgical team -s/p EVAR (POD#2) HTN -Monitor BP -Continue HCTZ 25mg po -Metoprolol 12.5mg po Hx of DVT -venous doppler ordered, patient refused -SCD C/I due to PVD PVD -Pentoxil 400mg po DM -A1C 6.1 on 03/20/18 -accuchecks Q6h -ISS low protocol -Hypoglycemic protocol -Hold DM meds Prophylactic measures -Protonix -Lovenox -SCD C/I due to PVD Disposition: Ok for discharge per cardio/vascular surgery. Information for follow up with Dr. Lawrence given at discharge. Will f/u with Dr. Stewart within a week. Milton Odom PGY-2 All medical management per Dr. Stewart
[2018-03-31] MEDS ORDERED: Pantoprazole 40 mg EC Tab PO SCH (10:00)
[2018-03-31] MEDS ORDERED: Enoxaparin 30 mg Syringe SC SCH (10:00)
[2018-03-31] MEDS: Metoprolol Succinate 12.5 mg XL PO SCH (10:08)
--- NOTE | 2018-03-31 11:42 | CP.PCM.PN ---
Subjective - Date & Time of Evaluation Date of Evaluation: 03/31/18 Time of Evaluation: 11:39 - Subjective Subjective: Kishan Lynne PGY1 Cardiology Progress Note for Dr. Zeng Patient was seen and examined at bedside. He denies abdominal pain, chest pain, shortness of breath, fevers/chills. Objective - Vital Signs/Intake and Output Vital Signs (last 24 hours): Temp Pulse Resp BP Pulse Ox 98.5 F 70 20 105/60 96 03/31/18 07:05 03/31/18 07:05 03/31/18 07:05 03/31/18 07:05 03/31/18 07:05 Intake and Output: 03/31/18 03/31/18 06:59 18:59 Intake Total 290 Output Total 425 Balance -135 - Medications Medications: Current Medications Dextrose (Dextrose 50% Inj) 0 ml IVP .STAT PRN; Protocol PRN Reason: Hypoglycemia Protocol Dextrose (Glutose 15) 0 gm PO .ONCE PRN; Protocol PRN Reason: Hypoglycemia Protocol Enoxaparin Sodium (Lovenox) 30 mg SC DAILY [facility] Last Admin: 03/31/18 10:14 Dose: Not Given Glimepiride (Amaryl) 4 mg PO BID [facility] Last Admin: 03/31/18 10:08 Dose: 4 mg Glucagon (Glucagen Diagnostic Kit) 0 mg IM .STAT PRN; Protocol PRN Reason: Hypoglycemia Protocol Hydrochlorothiazide (Hydrodiuril) 25 mg PO DAILY [facility] Last Admin: 03/31/18 10:08 Dose: 25 mg Insulin Human Regular (Novolin R) 0 unit SC ACHS [facility] PRN Reason: Protocol Last Admin: 03/31/18 07:30 Dose: Not Given Meclizine HCl (Antivert) 25 mg PO DAILY [facility] Last Admin: 03/31/18 10:07 Dose: 25 mg Metoprolol Succinate (Toprol Xl) 12.5 mg PO DAILY [facility] Last Admin: 03/31/18 10:08 Dose: 12.5 mg Oxycodone/Acetaminophen (Percocet 5/325 Mg Tab) 1 tab PO Q4H PRN PRN Reason: Pain, moderate (4-7) Stop: 04/01/18 21:15 Pantoprazole Sodium (Protonix Ec Tab) 40 mg PO DAILY [facility] Last Admin: 03/31/18 10:07 Dose: 40 mg Pentoxifylline (Pentoxil) 400 mg PO DAILY [facility] Last Admin: 03/31/18 10:09 Dose: 400 mg Sitagliptin Phosphate (Januvia) 50 mg PO DAILY [facility] Last Admin: 03/28/18 12:32 Dose: 50 mg Sitagliptin Phosphate (Januvia) 50 mg PO DAILY [facility] Last Admin: 03/31/18 10:08 Dose: 50 mg - Labs Labs: 03/31/18 08:07 03/31/18 08:07 PT 11.4 SECONDS (9.7-12.2) 03/26/18 07:53 INR 1.0 03/26/18 07:53 - Constitutional Appears: Well, Non-toxic, No Acute Distress - Head Exam Head Exam: NORMOCEPHALIC - Eye Exam Eye Exam: EOMI, Normal appearance - ENT Exam ENT Exam: Mucous Membranes Moist - Neck Exam Neck Exam: Normal Inspection - Respiratory Exam Respiratory Exam: Clear to Ausculation Bilateral, NORMAL BREATHING PATTERN. absent: Rales, Rhonchi, Wheezes - Cardiovascular Exam Cardiovascular Exam: RRR - GI/Abdominal Exam GI & Abdominal Exam: Soft, Tenderness (mild only in RLQ), Normal Bowel Sounds. absent: Distended, Guarding, Rigid - Extremities Exam Extremities Exam: Full ROM Additional comments: b/l inguinal dressing applied post-op - Back Exam Back Exam: NORMAL INSPECTION. absent: tenderness - Neurological Exam Neurological Exam: Alert, Awake - Psychiatric Exam Psychiatric exam: Normal Affect - Skin Skin Exam: Warm Assessment and Plan - Assessment and Plan (Free Text) Assessment: 83 yo M with a PMH HTN, DM2, HLD, COPD, DVT, IVC filter, CKD, PVD and CVA who presented for AAA endovascular repair Plan: 1. AAA - s/p endovascular reair on 03/29 - cont BP management w/ HCTZ, Toprol 2. Hx DM2 - strict gylcemic control Case was reviewed and discussed with Dr. Zeng
[2018-03-31] MEDS ORDERED: Metoprolol Succinate 25 mg XL Tab PO SCH (12:45)
[2018-03-31 16:09] VITALS: BP 105/58; PULSE 76; TEMP 98.8; O2SAT 98
--- NOTE | 2018-04-09 09:39 | OP ---
PROCEDURE DATE: 03/29/2018 PREOPERATIVE DIAGNOSIS: Infrarenal abdominal aortic aneurysm. POSTOPERATIVE DIAGNOSIS: Infrarenal abdominal aortic aneurysm. PROCEDURES: 1. Endograft repair of abdominal aortic aneurysm. 2. Femoral cutdown, right side. 3. Bilateral non-selective catheterization of the thoracic aorta. 4. Insertion of right iliac extension. 5. Extension of left iliac extension. 6. Percutaneous access of left common femoral artery with closure using ProGlide. 7. Angioplasty of left common iliac artery. SURGEON: Rena Lawrence MD TYPE OF ANESTHESIA: General anesthesia. COMPLICATIONS: No complications. DESCRIPTION OF PROCEDURE: Mr. Muñiz is an 83-year-old male patient with multiple medical problems, presented with an abdominal pain, found to have abdominal aortic aneurysm which increased in size from previous ____ 5 cm. The patient was transferred from [place] to [facility] for surgery. Risks and benefits were explained to him, and he agreed to proceed. The patient came to the operating room. He was lying in supine position. He was prepped and draped in the usual sterile fashion. General anesthesia was given for him, and appropriate lines were connected. We started with percutaneous access of the left common femoral artery ultrasound guidance. We used two Perclose devices, one we deployed at 2 o'clock and one at 10 o'clock to cross each other to approximate the artery at the end of the procedure. We did the same on the left side, but the device was not moving smoothly, and the suture was not deployed. So, we made cut down over the right common femoral artery. Incision was carried down subcutaneous tissue down to the fascia along the line of the common femoral artery. Using the standard technique, we got control of the common femoral artery, SFA and profunda and the two branching from the lower part of the external iliac which ; however, this artery got control of them. The two arteries are patent and soft with some plaque on the back wall. We accessed left side which will be using 7-Spanish sheath and in the right side, we put 8-Spanish sheath and a wire was inserted through the sheaths and pushed up to the thoracic aorta and Super Stiff wire from the right side. On the left side, we put a pigtail catheter with a marker for measuring the length of the aneurysm and 14-Spanish sheath was inserted and followed up under fluoroscopy up to the lower part of the aorta. After the angiogram, , and we pushed the lines through sheaths on the right side and the level of bifurcation. We used the Ovation iX aortic body delivery system. We pushed it until the radiopaque marker, will be about 1 cm above the lining area. We oriented the body have the level crossed to be easier accessed from the left side. We retracted the delivery system that was deployed. AP position and the X cranial axis and adjusted the radiopaque marker on the delivery system in a correct position. We deployed the first segment and brought to stent by turning the first stent counterclockwise, and we pulled it out from the handle. After that, we pulled the device to precisely put the radiopaque marker and defined the proximal landing at renal arteries, and we injected contrast in the angiogram to confirm those down beyond the level of release. We released the remaining part of the proximal stent by removing the second knob, we turned it counterclockwise, and we pulled it out. We removed the [place] cap from the polymer injection port and attached the syringe to it. We retracted the guidewire tip to the radiopaque part, and we prepared the polymer by the two syringes to each other and after that, we inserted to the polymer injection and we watched it, injected and filling the polymer. In the meantime, we started to put the Glidewire through the pigtail catheter, and we pulled it out. We put the Berenstein catheter over it, and we were able to select the contralateral limb, and we passed it up and we passed Pigtail catheter over it, and we pushed it up to the aortic graft and we to be sure that it is inside the lumen. After that, we put the wire again through the catheter and we pushed it up to the thoracic aorta, pulled the catheter out and put the [place] and after that, replaced the guidewire with wire. Over the wire, we inserted 11-Spanish sheath and through the 11-Spanish sheath we brought the contralateral delivery system, and we pushed it up to the proximal iliac line radiopaque marker and have the ring overlap, and we confirmed the insertion by the radiopaque marker , and we released the graft, sheath deploying the iliac lymph maintaining the catheter reinsertion. We maintained the position of the sheath and brought the device of the length to the right side and pushed over the wire, and we fixed with the marker to be in the right overlapping position and we deployed the right side by pulling the knob. Under fluoroscopy, we reji the catheter until the full lumen disengaged from the stent graft. Radiopaque marker of the polymer filled the port, moved away from the stent graft. We brought the catheter again through the contralateral side up to the level of the renal artery and we did angiogram and it showed the complete sealing from up. There is no ileal or endo leak type 1 or type 2. In the left side, the area was a little bit narrowed. So, we used the balloon catheter to angioplasty the left common iliac artery. We used realigned balloon also to inflate for ironing the graft, and this opposition segment between the main body of the graft and the limbs fixed in place. No complications. The patient tolerated the procedure well. The guidewire was removed and on the left side, it closed percutaneously by pulling the suture and tightening it. After that, the wire was removed and we tied completely and pressure applied. On the left side, we controlled the vessels and we pulled the sheath outside and we fixed it using 6-0 Prolene. Heparin 7000 units was given and adjusted every hour with more heparin. No complication during the procedure. The patient tolerated the procedure well, transferred to recovery room after we applied sterile dressing to the wound. No complications. Rena Lawrence MD
== END 2018-03-31 19:33 | disposition home or self-care (01) | DRG 269 ==
LOC: C.6T 22:01 → C.9I 03-29 20:28 → C.5S 03-31 02:13
PROVIDERS: ADMIT Internal Medicine Pulmonary Disease; ATTEND Internal Medicine Pulmonary Disease
PROC: 047D3ZZ Dilation of Left Common Iliac Artery, Percutaneous Approach (ICD-10-PCS; 2018-03-29)
PROC: 04V03D6 (ICD-10-PCS; principal; 2018-03-29 13:30)
DX: I71.4 Abdominal aortic aneurysm, without rupture (principal); E11.22 Type 2 diabetes mellitus with diabetic chronic kidney disease; E11.51 Type 2 diabetes mellitus with diabetic peripheral angiopathy without gangrene; E78.5 Hyperlipidemia, unspecified; I12.9 Hypertensive chronic kidney disease with stage 1 through stage 4 chronic kidney disease, or unspecified chronic kidney disease; J44.9 Chronic obstructive pulmonary disease, unspecified; N18.9 Chronic kidney disease, unspecified; Z86.73 Personal history of transient ischemic attack (TIA), and cerebral infarction without residual deficits; Z86.718 Personal history of other venous thrombosis and embolism; I51.3 Intracardiac thrombosis, not elsewhere classified; F17.210 Nicotine dependence, cigarettes, uncomplicated